=== PATIENT | male | born 1935 | race African-American/Black ===

== ENCOUNTER 2017-01-31 16:51 | Emergency (ER) | payer MEDICARE, MEDICAID ==
[~2017-01-31] VITALS: Ht 180.3 cm; Wt 68.0 kg
[~2017-01-31 16:51] MED LIST: ARIC10TA PO; BENZ0.5T PO; BUPR150T3 PO; CARV3.125 PO; FERR324T4 PO; METO10TA PO; OMEP20TA PO; POTA10TA2 PO; RISP1 PO; TRAM50TA PO; Z.0.WALKERFRONT
[2017-01-31 18:01] VITALS: BP 146/64; PULSE 75; RESP 18; TEMP 98.3; O2SAT 100
[2017-01-31 18:04] VITALS: BP 146/64; PULSE 75; RESP 18; TEMP 97.9; O2SAT 100
--- NOTE | 2017-01-31 18:21 | RADRPT ---
EXAM DATE/TIME: 01/31/2017 18:01 [facility] COMPARISON: No previous studies available for comparison. INDICATIONS : Chest pain after fall. MEDICAL HISTORY : None. SURGICAL HISTORY : None. ENCOUNTER: Initial ACUITY: 1 day PAIN SCORE: 10 LOCATION: Bilateral chest FINDINGS: There is ill-defined infiltrate of the left lung base. Right lung appears clear. No pleural effusion or pneumothorax seen on either side. Heart size stable, within normal limits. CONCLUSION: Nonspecific left base consolidation. Travis Ahumada MD on January 31, 2017 at 18:17 Board Certified Radiologist. This report was verified electronically.
--- NOTE | 2017-01-31 18:21 | RADRPT ---
EXAM DATE/TIME: 01/31/2017 18:04 [facility] COMPARISON: No previous studies available for comparison. INDICATIONS : Pelvic pain after fall. MEDICAL HISTORY : None. SURGICAL HISTORY : None. ENCOUNTER: Initial ACUITY: 1 day PAIN SCORE: 10/10 LOCATION: Bilateral pelvis. FINDINGS: A single frontal view of the pelvis demonstrates no evidence of fracture. The bony pelvic ring is in tact. Bony mineralization is normal. The soft tissues are intact. There is moderate bilateral hip osteoarthritis. CONCLUSION: Intact pelvis. Travis Ahumada MD on January 31, 2017 at 18:19 Board Certified Radiologist. This report was verified electronically.
--- NOTE | 2017-01-31 18:27 | PD ---
HPI Chief Complaint: Fall Time Seen by Provider: 18:20 Travel History International Travel<30 days: No Contact w/Intl Traveler<30days: No Traveled to known affect area: No History of Present Illness HPI 81-year-old health that presents to the ED for evaluation of trip and fall. History was mostly obtained from the ambulance as patient does have a history of dementia and is a poor historian, which from prior records is his baseline. History is limited from him but per ambulance patient did have a trip and fall at his house and hit his head. Patient was wearing glasses the time I have a cut to his left eyebrow. He is supposed to use a cane or walker at home but apparently he did not this time. Per ambulance patient complained of nothing other than pain to the area of the laceration. Patient was put on a backboard and cervical collar by ambulance. He denies any chest pain or shortness of breath. He states that his pain is mild and only gets worst if I touch it. He was not given anything for the pain. No other signs of trauma. Takes no blood thinners. He does answer some basic questions yes or no. He does have a history of allergy to Haldol. Again history is limited secondary to patient's mental status. I do not see any other sign of trauma. Patient moving the upper and lower extremities with no obvious discomfort. PFSH Past Medical History Anemia: Yes Asthma: No Blood Disorders: No Anxiety: No Depression: No Heart Rhythm Problems: No Cancer: No Cardiovascular Problems: No High Cholesterol: No Chemotherapy: No Chest Pain: No Congestive Heart Failure: No Dementia: Yes Endocrine: No Gastrointestinal Disorders: No Genitourinary: Yes Immune Disorder: No Implanted Vascular Access Dvce: No Musculoskeletal: Yes (uses a cane at home) Neurologic: No Psychiatric: Yes (bipolar) Reproductive: No Respiratory: No Immunizations Current: Yes Radiation Therapy: No Schizophrenia: Yes Sleep Apnea: No ?: Not Past Surgical History AICD: No Arteriovenous Shunt: No Cardiac Surgery: Yes (angiogram) Insulin Pump: No Joint Replacement: No Pacemaker: No Other Surgery: No Social History Alcohol Use: No Tobacco Use: Yes (1 cig per day) Substance Use: No Allergies-Medications (Allergen,Severity, Reaction): Coded Allergies: Haldol (Unverified Allergy, Intermediate, Hallucinations, 11/29/15) Reported Meds & Prescriptions Reported Meds & Active Scripts Active Walker Front Wheel (Walkerfront) Device 1 Unit Coreg 3.125 mg (Carvedilol) 3.125 Mg Tab 3.125 Mg PO Q12 Reported Reglan (Metoclopramide HCl) 10 Mg Tab 10 Mg PO TID Ferrous Sulfate 325 Mg Tab 325 Mg PO DAILY Tramadol Hcl (Tramadol HCl) 50 Mg Tab 50 Mg PO 2-3 TIMES A DAY Omeprazole 20 mg (Omeprazole) 20 Mg Tab 20 Mg PO DAILY Potassium Chloride Er (Potassium Chloride) 10 Meq Tab 10 Meq PO DAILY Cogentin (Benztropine Mesylate) 0.5 Mg Tab 0.5 Mg PO HS Bupropion Hcl Xl (Bupropion HCl) 150 Mg Tab 150 Mg PO DAILY Aricept (Donepezil HCl) 10 Mg Tab 10 Mg PO DAILY Risperdal (Risperidone) 1 Mg Tab 1 Mg PO HS Review of Systems ROS Limitations: Poor Historian General / Constitutional: No: Fever, Chills, Weight Gain, Weight Loss, Other Eyes: No: Diploplia, Blurred Vision, Photophobia, Drainage, Redness, Foreign Body Sensation, Pain, Tearing, Blind Spots, Visual changes, Blindness, Other HENT: No: Headaches, Vertigo, Lightheadedness, Sore Throat, Rhinitis, Rhinorrhea, Congestion, Nosebleed, Neck Stiffness, Neck Pain, Masses, Gingival Bleeding, Dental Difficulties, Ear Discharge, Earache, Other Cardiovascular: No: Chest Pain or Discomfort, Palpitations, Irregular Rhythm, Tachycardia, Diaphoresis, Syncope, Dyspnea on exertion, Varicosities, Edema, Cyanosis, Varicosities, Phlebitis, Claudication, Other Respiratory: No: Cough, Shortness of Breath, Wheezing, Sneezing, Orthopnea, Hemoptysis, Stridor, Night Sweats, Pleuritic Pain, Other Gastrointestinal: No: Nausea, Vomiting, Diarrhea, Abdominal Pain, Hematemesis, Hematochezia, Constipation, Changes in Bowel Habits, Indigestion, Dysphagia, Loss of Appetite, Other Genitourinary: No: Urgency, Frequency, Dysuria, Nocturia, Hematuria, Decreased Urinary Output, Oliguria, Hesitancy, Dribbling, Incontinence, Pelvic Pain, Flank Pain, Dyspareunia, Discharge, Dysmenorrhea, Menorrhagia, Metorrhagia, Vaginal Bleeding, Other Musculoskeletal: Positive: Pain, No: Myalgias, Arthralgias, Limited ROM, Weakness, Cramping, Edema, Atrophy, Other Skin: Positive Lesions (left eyebrow lac), No Rash, No Itching, No Dryness, No Lumps, No Hives, No Change in Pigmentation, No Change in nails, No Alopecia, No Breast Lumps, No Breast Tenderness, No Breast Swelling, No Other Neurologic: No: Weakness, Dizziness, Syncope, Focal Abnormalities, Coordination Problem, Tremor, Ataxia, Headache, Change in Mentation, Slurred Speech, Paresthesia, Incontinence, Seizures, Sensory Disturbance, Other Psychiatric: No: Anxiety, Depression, Suicidal Ideations, Disorder of Thought, Mood Disorder, Substance Abuse, Homicidal Ideation, Other Endocrine: No: Heat Intolerance, Cold Intolerance, Polyuria, Polydipsia, Other Hematologic/Lymphatic: No: Easy Bruising, Lymph Node Enlargement, Other Physical Exam Exam Limitations: Poor Historian Narrative GENERAL: SKIN: Warm and dry. HEAD: Atraumatic. Normocephalic. EYES: Pupils equal and round. No scleral icterus. No injection or drainage. ENT: No nasal bleeding or discharge. Mucous membranes pink and moist. Tongue is midline. No uvula deviation. NECK: Trachea midline. No JVD. CARDIOVASCULAR: Regular rate and rhythm. No murmurs, S3, S4. RESPIRATORY: No accessory muscle use. Clear to auscultation. Breath sounds equal bilaterally. GASTROINTESTINAL: Abdomen soft, non-tender, nondistended. Hepatic and splenic margins not palpable. MUSCULOSKELETAL: Extremities without clubbing, cyanosis, or edema. No obvious deformities. Full range of motion of the upper and lower extremities bilaterally with no obvious pain or deformity noted. Patient was seen on a backboard and with cervical collar placed. Patient does not appear to have any deformity or pain on the scapula or pelvic bones but patient does appear to complain of pain when I touch in the lumbar and thoracic as well as cervical spine until hard to assess secondary to the patient's mental status. He is able to move the upper and lower extremities with no obvious discomfort. 2+ pulses bilaterally. NEUROLOGICAL: Awake and alert. No obvious cranial nerve deficits. Motor grossly within normal limits. Five out of 5 muscle strength in the arms and legs. Normal speech. PSYCHIATRIC: Appropriate mood and affect; insight and judgment normal. Data Data Last Documented VS Vital Signs Date Time Temp Pulse Resp B/P Pulse Ox O2 Delivery O2 Flow Rate FiO2 01/31/17 18:56 74 18 148/64 100 Room Air 01/31/17 18:[address] Brain W/O Iv Contrast(Rout) (01/31/17 17:48) Ct Cerv Spine W/O Contrast (01/31/17 17:48) Ct Thor Spine W/O Contrast (01/31/17 17:48) Ct Lumb Spine W/O Contrast (01/31/17 17:48) Ice/Cold Pack (01/31/17 17:48) Chest, Single Ap (01/31/17 17:48) Pelvis, Ap Only (Routine) (01/31/17 17:48) MDM Medical Decision Making Medical Screen Exam Complete: Yes Emergency Medical Condition: Yes Medical Record Reviewed: Yes Interpretation(s) Last Impressions Thoracic Spine CT 01/31/171747 Signed Impressions: Service Date/Time: January 18:18 - CONCLUSION: 1. No fracture or subluxation of the thoracic spine. 2. Mild diffuse degenerative disc disease. Also facet osteoarthritis at T9/T10 contributing to right foraminal stenosis. Travis Ahumada MD Pelvis X-Ray 01/31/171747 Signed Impressions: Service Date/Time: January 18:04 - CONCLUSION: Intact pelvis. Travis Ahumada MD Head CT 01/31/171747 Signed Impressions: Service Date/Time: January 18:09 - CONCLUSION: No bleed or other acute intracranial abnormality. Chronic white matter changes. Travis Ahumada MD Chest X-Ray 01/31/171747 Signed Impressions: Service Date/Time: January 18:01 - CONCLUSION: Nonspecific left base consolidation. Travis Ahumada MD Cervical Spine CT 01/31/171747 Signed Impressions: Service Date/Time: January 18:12 - CONCLUSION: No fracture or subluxation of the cervical spine. Travis Ahumada MD CT lumbar spine negative Differential Diagnosis Dementia versus fall versus head bleed versus laceration versus abrasion versus contusion Narrative Course 81-year-old male that presents to the ED for evaluation of fall. Patient was properly examined and was found to have signs and symptoms consistent with appears to be fall. Caregiver collaborated with the story. This was a trip and fall. Imaging was ordered. Patient only has a superficial laceration. I do recommend Dermabond with Steri-Strips. Patient is agreeable with this. Imaging showed no sign of acute bony injury. Patient was reassured. From history and physical this appears to be a trip and fall. Patient appears to be at baseline at this time. Patient will be discharged back to his caregiver. Motrin or tylenol for pain. Case was discussed in my attending Dr. De Los Santos who agrees to plan. Follow up with PCP. See ED worsening symptoms. Procedures Procedure Narrative LACERATION LOCATION: left eyebrow LENGTH: 1 cm NUMBER OF STITCHES/BERNARDO: dermabond and steristrip REPAIR: The area of the laceration was prepped with Betadine and sterilely draped. The wound was copiously irrigated and explored without evidence of foreign body, tendon injury or neurovascular injury. The wound was closed using dermabond and steristrip. This was a 1 layer repair. A sterile dressing was applied. The patient was advised to keep the dressing clean and dry. Patient tolerated the procedure well. Diagnosis Primary Impression: Fall Qualified Code: W19.XXXA - Fall, initial encounter Additional Impressions: Head injury Qualified Code: S09.90XA - Head injury, initial encounter Laceration Patient Instructions: General Instructions Additional Instructions: Motrin or tylenol for pain. See ED if worst. F/u with PCP. Med/Other Pt SpecificInfo: No Meds Exist/No RX given Disposition: 01 DISCHARGE HOME Condition: Stable Yariel Mcnair Jan 31, 2017 18:27
--- NOTE | 2017-01-31 18:37 | RADRPT ---
EXAM DATE/TIME: 01/31/2017 18:09 [facility] COMPARISON: CT BRAIN W/O CONTRAST, May 06, 2016, 9:50. INDICATIONS : Fall today laceration to left frontal area. RADIATION DOSE: 56.35 CTDIvol (mGy) MEDICAL HISTORY : Cardiovascular disease. Dementia. SURGICAL HISTORY : None. ENCOUNTER: Initial ACUITY: 1 day PAIN SCALE: 0/10 LOCATION: cranial TECHNIQUE: Multiple contiguous axial images were obtained of the head. Using automated exposure control and adj ustment of the mA and/or kV according to patient size, radiation dose was kept as low as reasonably a chievable to obtain optimal diagnostic quality images. FINDINGS: CEREBRUM: The ventricles are normal for age. No evidence of midline shift, mass lesion, hemorrhage or acute in farction. No extra-axial fluid collections are seen. Chronic low attenuation seen in the periventric ular white matter. POSTERIOR FOSSA: The cerebellum and brainstem are intact. The 4th ventricle is midline. The cerebellopontine angle i s unremarkable. EXTRACRANIAL: The visualized portion of the orbits is intact. SKULL: The calvaria is intact. No evidence of skull fracture. CONCLUSION: No bleed or other acute intracranial abnormality. Chronic white matter changes. Travis Ahumada MD on January 31, 2017 at 18:34 Board Certified Radiologist. This report was verified electronically.
[2017-01-31 18:56] VITALS: BP 148/64; PULSE 74; RESP 18; O2SAT 100
--- NOTE | 2017-01-31 19:09 | RADRPT ---
EXAM DATE/TIME: 01/31/2017 18:12 [facility] COMPARISON: CT CERVICAL SPINE W/O CONTRAST, February 07, 2016, 12:03. INDICATIONS : Fall today. RADIATION DOSE: 37.93 CTDIvol (mGy) MEDICAL HISTORY : Dementia. Cardiovascular disease SURGICAL HISTORY : None. ENCOUNTER: Initial ACUITY: 1 day PAIN SCALE: 0/10 LOCATION: neck TECHNIQUE: Volumetric scanning of the cervical spine was performed. Multiplanar reconstructions in the sagittal, coronal and oblique axial planes were performed. Using automated exposure control and adjustment o f the mA and/or kV according to patient size, radiation dose was kept as low as reasonably achievable to obtain optimal diagnostic quality images. FINDINGS: Cervical spine alignment is normal and unchanged. No cortical break or trabecular disruption. Vertebr al bodies have normal height. Disc space narrowing with uncovertebral and facet osteoarthritis seen, mild to moderate at C3/C4 and C5/C6, mild at the other levels. No significant foraminal or spinal stenosis demonstrated. Nothing co nvincing for an acute disc herniation. CONCLUSION: No fracture or subluxation of the cervical spine. Travis Ahumada MD on January 31, 2017 at 19:06 Board Certified Radiologist. This report was verified electronically.
--- NOTE | 2017-01-31 19:26 | RADRPT ---
EXAM DATE/TIME: 01/31/2017 18:18 [facility] COMPARISON: No previous studies available for comparison. INDICATIONS : Fall today RADIATION DOSE: 13.60 CTDIvol (mGy) ; Combined studies - Thoracic Spine/Lumbar Spine MEDICAL HISTORY : Dementia. Cardiovascular disease SURGICAL HISTORY : None. ENCOUNTER: Initial ACUITY: 1 day PAIN SCALE: 0/10 LOCATION: Thoracic spine TECHNIQUE: Volumetric scanning of the thoracic spine was performed. Multiplanar reconstructions in the sagittal , coronal and oblique axial planes were performed. Using automated exposure control and adjustment o f the mA and/or kV according to patient size, radiation dose was kept as low as reasonably achievable to obtain optimal diagnostic quality images. FINDINGS: Thoracic spine alignment is normal. No cortical break or trabecular destruction. Vertebral bodies hav e normal height. There is mild disc space narrowing at essentially all levels. There is anterior and right lateral oss eous ridging from T7/T8-T12/L1. Right-sided predominant facet osteoarthritis seen at T9/T10 contribut ing to right foraminal stenosis. CONCLUSION: 1. No fracture or subluxation of the thoracic spine. 2. Mild diffuse degenerative disc disease. Also facet osteoarthritis at T9/T10 contributing to right foraminal stenosis. Travis Ahumada MD on January 31, 2017 at 19:23 Board Certified Radiologist. This report was verified electronically.
--- NOTE | 2017-01-31 19:36 | RADRPT ---
EXAM DATE/TIME: 01/31/2017 18:18 [facility] COMPARISON: No previous studies available for comparison. INDICATIONS : Fall today. RADIATION DOSE: 13.60 CTDIvol (mGy) ; Combined studies - Thoracic Spine/Lumbar Spine MEDICAL HISTORY : Cardiovascular disease. Dementia. SURGICAL HISTORY : None. ENCOUNTER: Initial ACUITY: 1 day PAIN SCALE: 0/10 LOCATION: Lumbar TECHNIQUE: Volumetric scanning of the lumbar spine was performed. Multiplanar reconstructions in the sagittal, coronal and oblique axial planes were performed. Using automated exposure control and adjustment of the mA and/or kV according to patient size, radiation dose was kept as low as reasonably achievable t o obtain optimal diagnostic quality images. FINDINGS: Lumbar spine has a moderate levoconvex curvature. No fracture or subluxation demonstrated. Vertebral bodies have normal height. There is right greater than left disc space narrowing with vacuum phenomena at L3/L4, L4/L5 and L5/S1 . Similar but milder findings with mainly left side disc space narrowing seen at L1/L2 and L2/L3. The re is severe right and moderate left foraminal stenosis at L5/S1. There is moderate bilateral foramin al stenosis at L4/L5 and L3/L4. CONCLUSION: Scoliosis and degenerative changes as above. No fracture or subluxation of the lumbar spine. Travis Ahumada MD on January 31, 2017 at 19:33 Board Certified Radiologist. This report was verified electronically.
== END 2017-01-31 22:05 | disposition home or self-care (01) ==
LOC: NEPE 16:51
DX: S09.90XA Unspecified injury of head, initial encounter (principal); F03.90 Unspecified dementia, unspecified severity, without behavioral disturbance, psychotic disturbance, mood disturbance, and anxiety; W01.0XXA Fall on same level from slipping, tripping and stumbling without subsequent striking against object, initial encounter; Y92.009 Unspecified place in unspecified non-institutional (private) residence as the place of occurrence of the external cause; Z72.0 Tobacco use
CPT/HCPCS: 12011; 70450; 71010; 72125; 72128; 72131; 72170

== ENCOUNTER 2017-02-06 09:36 | Inpatient (IN) | payer MEDICARE, MEDICAID ==
[~2017-02-06] VITALS: Ht 172.7 cm; Wt 62.0 kg
[2017-02-06 09:49] VITALS: BP 162/78; PULSE 84; RESP 20; TEMP 98.4; O2SAT 100
[2017-02-06] MEDS ORDERED: SODIUM CHLOR 0.9% 1000 ML INJ 1,000 ML IV ONE (10:00)
[2017-02-06] MEDS ORDERED: SODIUM CHLORIDE 0.9% FLUSH 5 ML FLUSH IVF PRN (10:00)
[2017-02-06 10:21] LABS: AUTOMATED NEUTROPHIL # 8.7 TH/MM3 (1.8-7.7); BASOPHIL % 0.2 % (0.0-2.0); HEMO FLAGS DIFF FINAL; LYMPH % 13.3 % (9.0-44.0); LYMPHOCYTE # 1.4 TH/MM3 (1.0-4.8); MEAN CELL VOLUME 91.6 FL (80.0-100.0); MEAN CORPUSCULAR HEMOGLOBIN 29.4 PG (27.0-34.0); MEAN CORPUSCULAR HGB CONC 32.1 % (32.0-36.0); MONO % 6.8 % (0.0-8.0); NEUT % 79.7 % (16.0-70.0); PLATELET COUNT 211 TH/MM3 (150-450); RED BLOOD COUNT 4.37 MIL/MM3 (4.50-5.90); RED CELL DISTRIBUTION WIDTH 14.7 % (11.6-17.2); WHITE BLOOD COUNT 10.9 TH/MM3 (4.0-11.0)
[2017-02-06 10:25] LABS: APTT (PATIENT) 26.5 SEC (24.3-30.1); PROTHROMBIN TIME - PATIENT 11.2 SEC (9.8-11.6)
--- NOTE | 2017-02-06 10:40 | RADRPT ---
EXAM DATE/TIME: 02/06/2017 10:25 [facility] COMPARISON: CHEST SINGLE AP, January 31, 2017, 18:01. INDICATIONS : Fall. Palpiatations. MEDICAL HISTORY : Cardiovascular disease. Dementia. SURGICAL HISTORY : None. ENCOUNTER: Initial ACUITY: 1 day PAIN SCORE: Non-responsive. LOCATION: Bilateral chest FINDINGS: A single view of the chest demonstrates the lungs to be symmetrically aerated without evidence of mas s, infiltrate or effusion. The cardiomediastinal contours are unremarkable. Osseous structures are intact. CONCLUSION: No acute disease. Walker De Santiago MD FACR on February 06, 2017 at 10:39 Board Certified Radiologist. This report was verified electronically.
--- NOTE | 2017-02-06 11:14 | PD ---
HPI Chief Complaint: Fall Time Seen by Provider: 09:50 Travel History International Travel<30 days: No Contact w/Intl Traveler<30days: No Traveled to known affect area: No History of Present Illness HPI Is an 81-year-old male who is brought in by EMS for evaluation of fall. He is accompanied by his neighbor who brings him his medicines. Patient apparently has a history of dementia and frequent falls. Patient was last seen by her last morning when she stopped by to bring him his medicines. She went by this morning and found him on the floor and called 911. According to her he had said that he fell an hour prior to her getting there. He is fairly demented and I'm not sure this is an accurate history. He has no complaints currently. He is oriented to self only. This extremely limits his history. According to the neighbor the patient has had a history of recent falls and has been in the emergency department multiple times and she thinks that he needs to be in a shelter. His family lives in the [facility] not at bedside further history at this time. PFSH Past Medical History Anemia: Yes Asthma: No Blood Disorders: No Anxiety: No Depression: No Heart Rhythm Problems: No Cancer: No Cardiovascular Problems: No High Cholesterol: No Chemotherapy: No Chest Pain: No Congestive Heart Failure: No Dementia: Yes Endocrine: No Gastrointestinal Disorders: No Genitourinary: Yes Immune Disorder: No Implanted Vascular Access Dvce: No Musculoskeletal: Yes (uses a cane at home) Neurologic: No Psychiatric: Yes (bipolar) Reproductive: No Respiratory: No Immunizations Current: Yes Radiation Therapy: No Schizophrenia: Yes Sleep Apnea: No Past Surgical History AICD: No Arteriovenous Shunt: No Cardiac Surgery: Yes (angiogram) Insulin Pump: No Joint Replacement: No Pacemaker: No Other Surgery: No Social History Alcohol Use: No Tobacco Use: Yes (1 cig per day) Substance Use: No Allergies-Medications (Allergen,Severity, Reaction): Coded Allergies: Haldol (Verified Allergy, Intermediate, Hallucinations, 02/06/17) Reported Meds & Prescriptions Reported Meds & Active Scripts Active Reported Benztropine (Benztropine Mesylate) 0.5 Mg Tab 0.5 Mg PO HS Wellbutrin Xl 24 HR (Bupropion HCl) 150 Mg Tab 150 Mg PO DAILY Carvedilol 3.125 Mg Tab 3.125 Mg PO Q12HR Donepezil 10 Mg Tab 10 Mg PO DAILY Ferrous Sulfate 325 Mg Tab 325 Mg PO DAILY Omeprazole 20 Mg Tab 20 Mg PO DAILY K-Tab (Potassium Chloride) 10 Meq Tab 10 Meq PO DAILY Risperdal (Risperidone) 1 Mg Tab 1 Mg PO HS Tramadol (Tramadol HCl) 50 Mg Tab 50 Mg PO 2-3 TIMES DAILY Cyproheptadine (Cyproheptadine HCl) 4 Mg Tab 4 Mg PO BID Review of Systems Except as stated in HPI: all other systems reviewed are Neg Physical Exam Narrative GENERAL: Well-developed thin no apparent distress SKIN: Warm and dry. HEAD: No hernandez signs no raccoons eyes, there is a small ecchymosis underneath the left eye, a laceration to his left brow which is been repaired and has Steri -Strips in place. Normocephalic. EYES: Pupils equal and round. No scleral icterus. No injection or drainage. ENT: No nasal bleeding or discharge. Mucous membranes pink and moist. NECK: Trachea midline. No JVD. CARDIOVASCULAR: Regular rate and rhythm. No murmur appreciated. RESPIRATORY: No accessory muscle use. Clear to auscultation. Breath sounds equal bilaterally. GASTROINTESTINAL: Abdomen soft, non-tender, nondistended. Hepatic and splenic margins not palpable. MUSCULOSKELETAL: No obvious deformities. No clubbing. No cyanosis. No edema. NEUROLOGICAL: Awake and alert. No obvious cranial nerve deficits. Motor grossly within normal limits. Normal speech. PSYCHIATRIC: Appropriate mood and affect; insight and judgment normal. Data Data Last Documented VS Vital Signs Date Time Temp Pulse Resp B/P Pulse Ox O2 Delivery O2 Flow Rate FiO2 02/06/17 13:16 85 20 153/65 97 Room Air 02/06/17 09:49 98.4 Orders Electrocardiogram (02/06/17 ) Complete Blood Count With Diff (02/06/17 09:50) Comprehensive Metabolic Panel (02/06/17 09:50) Ckmb (Isoenzyme) Profile (02/06/17 09:50) Troponin I (02/06/17 09:50) Act Partial Throm Time (Ptt) (02/06/17 09:50) Prothrombin Time / Inr (Pt) (02/06/17 09:50) Urinalysis - C+S If Indicated (02/06/17 09:50) Chest, Single Ap (02/06/17 09:50) Ct Brain W/O Iv Contrast(Rout) (02/06/17 09:50) Ct Cerv Spine W/O Contrast (02/06/17 09:50) Ecg Monitoring (02/06/17 09:50) Iv Access Insert/Monitor (02/06/17 09:50) Oximetry (02/06/17 09:50) Sodium Chloride 0.9% Flush (Ns Flush) (02/06/17 10:00) Sodium Chlor 0.9% 1000 Ml Inj (Ns 1000 M (02/06/17 10:00) CKMB (02/06/17 11:20) CKMB% (02/06/17 11:20) Lorazepam Inj (Ativan Inj) (02/06/17 13:15) Admit Order (Ed Use Only) (02/06/17 ) Labs Laboratory Tests Test 02/06/17 02/06/17 10:05 11:20 White Blood Count 10.9 TH/MM3 Red Blood Count 4.37 MIL/MM3 Hemoglobin 12.8 GM/DL Hematocrit 40.0 % Mean Corpuscular Volume 91.6 FL Mean Corpuscular Hemoglobin 29.4 PG Mean Corpuscular Hemoglobin 32.1 % Concent Red Cell Distribution Width 14.7 % Platelet Count 211 TH/MM3 Mean Platelet Volume 8.7 FL Neutrophils (%) (Auto) 79.7 % Lymphocytes (%) (Auto) 13.3 % Monocytes (%) (Auto) 6.8 % Eosinophils (%) (Auto) 0.0 % Basophils (%) (Auto) 0.2 % Neutrophils # (Auto) 8.7 TH/MM3 Lymphocytes # (Auto) 1.4 TH/MM3 Monocytes # (Auto) 0.7 TH/MM3 Eosinophils # (Auto) 0.0 TH/MM3 Basophils # (Auto) 0.0 TH/MM3 CBC Comment DIFF FINAL Differential Comment Prothrombin Time 11.2 SEC Prothromb Time International 1.0 RATIO Ratio Activated Partial 26.5 SEC Thromboplast Time Sodium Level 147 MEQ/L Potassium Level 3.7 MEQ/L Chloride Level 114 MEQ/L Carbon Dioxide Level 20.8 MEQ/L Anion Gap 12 MEQ/L Blood Urea Nitrogen 14 MG/DL Creatinine 1.01 MG/DL Estimat Glomerular Filtration 86 ML/MIN Rate Random Glucose 70 MG/DL Calcium Level 8.3 MG/DL Total Bilirubin 0.4 MG/DL Aspartate Amino Transf 113 U/L (AST/SGOT) Alanine Aminotransferase 40 U/L (ALT/SGPT) Alkaline Phosphatase 145 U/L Total Creatine Kinase 3549 U/L Creatine Kinase MB 14.7 NG/ML Creatine Kinase MB % 0.4 % Troponin I LESS THAN 0.02 NG/ML Total Protein 6.8 GM/DL Albumin 2.8 GM/DL MDM Medical Decision Making Medical Screen Exam Complete: Yes Emergency Medical Condition: Yes Interpretation(s) EKG shows normal sinus rhythm with normal axis and normal R-wave progression. No concerning ST T changes. Somewhat limited by motion artifact. Normal EKG otherwise. Differential Diagnosis Rhabdomyolysis, fall, head injury, dementia, poor social circumstance. Narrative Course Last [address] 02/06/17949 Signed Impressions: Service Date/Time: Monday, February 06, 2017 11:27 - CONCLUSION: 1. No acute intracranial abnormality or significant change is seen. 2. Atrophy. There is suspected small vessel demyelination in the cerebral white matter. Travis Colon MD Chest X-Ray 02/06/17949 Signed Impressions: Service Date/Time: Monday, February 06, 2017 10:25 - CONCLUSION: No acute disease. Walker De Santiago MD FACR Cervical Spine CT 02/06/17949 Signed Impressions: Service Date/Time: Monday, February 06, 2017 11:29 - CONCLUSION: No acute bony abnormality is seen. There is mild degenerative change as described above. Travis Colon MD Patient's labs reveal rhabdomyolysis. Patient becoming agitated, ativan given. Attempts to reach family unsuccessful. Discussed with Dr. Lua for admission. May require placement. Diagnosis Primary Impression: Rhabdomyolysis Qualified Code: M62.82 - Non-traumatic rhabdomyolysis Additional Impression: Poor social situation Taiwo Bernardo MD Feb 06, 2017 11:14
[2017-02-06 11:49] VITALS: BP 149/68; PULSE 85; RESP 20; O2SAT 98
[2017-02-06] MEDS ORDERED: CYPR4TAB PO (11:53)
--- NOTE | 2017-02-06 12:03 | RADRPT ---
EXAM DATE/TIME: 02/06/2017 11:27 [facility] COMPARISON: CT BRAIN W/O CONTRAST, January 31, 2017, 18:09. INDICATIONS : patient fell this morning was found on the floor. RADIATION DOSE: 56.36 CTDIvol (mGy) MEDICAL HISTORY : Cardiovascular disease. Hypertension. SURGICAL HISTORY : None. ENCOUNTER: Initial ACUITY: 1 day PAIN SCALE: 5/10 LOCATION: cranial TECHNIQUE: Multiple contiguous axial images were obtained of the head. Using automated exposure control and adj ustment of the mA and/or kV according to patient size, radiation dose was kept as low as reasonably a chievable to obtain optimal diagnostic quality images. FINDINGS: CEREBRUM: The ventricles and cortical sulci are widened. There is decreased density in the periventricular whi te matter. Basal ganglia calcifications are present. No evidence of midline shift, mass lesion, hemor rhage or acute infarction. No extra-axial fluid collections are seen. POSTERIOR FOSSA: The cerebellum and brainstem are intact. The 4th ventricle is midline. The cerebellopontine angle i s unremarkable. There is some expansion of the extra-axial spaces of the posterior fossa. EXTRACRANIAL: The visualized portion of the orbits is intact. SKULL: The calvaria is intact. No evidence of skull fracture. CONCLUSION: 1. No acute intracranial abnormality or significant change is seen. 2. Atrophy. There is suspected small vessel demyelination in the cerebral white matter. Travis Colon MD on February 06, 2017 at 12:00 Board Certified Radiologist. This report was verified electronically.
[2017-02-06 12:13] LABS: ALKALINE PHOSPHATASE 145 U/L (45-117); ALT (GPT) 40 U/L (12-78); ANION GAP 12 MEQ/L (5-15); AST (GOT) 113 U/L (15-37); BICARBONATE 20.8 MEQ/L (21.0-32.0); BLOOD UREA NITROGEN 14 MG/DL (7-18); CHLORIDE 114 MEQ/L (98-107); CREATINE KINASE 3549 U/L (39-308); GLOMERULAR FILTRATION RATE 86 ML/MIN (>89); POTASSIUM 3.7 MEQ/L (3.5-5.1); SODIUM (NA) 147 MEQ/L (136-145)
[2017-02-06 12:18] LABS: TOTAL BILIRUBIN ADULT 0.4 MG/DL (0.2-1.0)
[2017-02-06 12:42] LABS: CKMB 14.7 NG/ML (0.5-3.6)
--- NOTE | 2017-02-06 12:51 | RADRPT ---
EXAM DATE/TIME: 02/06/2017 11:29 [facility] COMPARISON: CT CERVICAL SPINE W/O CONTRAST, January 31, 2017, 18:12. INDICATIONS : Patient was found on the floor this morning. RADIATION DOSE: 34.05 CTDIvol (mGy) MEDICAL HISTORY : Hypertension. Cardiovascular disease SURGICAL HISTORY : None. ENCOUNTER: Initial ACUITY: 1 day PAIN SCALE: 5/10 LOCATION: neck TECHNIQUE: Volumetric scanning of the cervical spine was performed. Multiplanar reconstructions in the sagittal, coronal and oblique axial planes were performed. Using automated exposure control and adjustment o f the mA and/or kV according to patient size, radiation dose was kept as low as reasonably achievable to obtain optimal diagnostic quality images. FINDINGS: VERTEBRAE: Normal vertebral body height. ALIGNMENT: No evidence of subluxation. C2-C3: The bony spinal canal is normal in size. No evidence of disc bulge or herniation. The neural forami na are bilaterally patent. There is mild facet hypertrophy. C3-C4: The bony spinal canal is normal in size. No evidence of disc bulge or herniation. The neural forami na are bilaterally patent. There is mild left facet hypertrophy and bilateral uncovertebral hypertrop hy. Anterior marginal osteophytes are seen. C4-C5: The bony spinal canal is normal in size. No evidence of disc bulge or herniation. The neural forami na are bilaterally patent. There is mild left facet hypertrophy and bilateral uncovertebral hypertrop hy. Anterior marginal osteophytes are seen. C5-C6: The bony spinal canal is normal in size. No evidence of disc bulge or herniation. The neural forami na are bilaterally patent. There is mild osteophytic ridging present. There is uncovertebral hypertro phy. C6-C7: The bony spinal canal is normal in size. No evidence of disc bulge or herniation. The neural forami na are bilaterally patent. Mild anterior marginal osteophytes are present. There is mild uncovertebra l hypertrophy. C7-T1: The bony spinal canal is normal in size. No evidence of disc bulge or herniation. The neural forami na are bilaterally patent. Anterior marginal osteophytes are seen. CONCLUSION: No acute bony abnormality is seen. There is mild degenerative change as described above. Travis Colon MD on February 06, 2017 at 12:43 Board Certified Radiologist. This report was verified electronically.
[2017-02-06] MEDS ORDERED: LORazepam 2 MG/ML VIAL IM ONE (13:15)
[2017-02-06 13:16] VITALS: BP 153/65; PULSE 85; RESP 20; O2SAT 97
[2017-02-06] MEDS ORDERED: PILL SPLITTER OTHER PRN (15:30)
[2017-02-06 17:00] VITALS: BP 161/68; PULSE 89; RESP 20; O2SAT 98
[2017-02-06] MEDS: ENOXAPARIN SODIUM 40 MG/0.4 ML SYRINGE SQ SCH (17:03)
[2017-02-06] MEDS ORDERED: K-TA10TA PO (17:33)
[2017-02-06] MEDS ORDERED: RISP1 PO (17:33)
[2017-02-06] MEDS ORDERED: TRAM50TA PO (17:33)
[2017-02-06] MEDS ORDERED: FERR325T PO (17:38)
[2017-02-06] MEDS ORDERED: DONE10TA7 PO (17:38)
[2017-02-06] MEDS ORDERED: CARV3.12 PO (17:38)
[2017-02-06] MEDS ORDERED: BENZ0.5T PO (17:38)
[2017-02-06] MEDS ORDERED: OMEP20TA PO (17:38)
[2017-02-06] MEDS ORDERED: BUPR150XL PO (17:38)
[2017-02-06] MEDS: SODIUM BICARBONATE 8.4% INJ 50 MEQ in DEXTROSE 5% IN WATE 1000ML INJ 1,000 ML IV SCH ×2 (17:52)
--- NOTE | 2017-02-06 17:59 | HHI.HP ---
[facility] Walker Love DO Admission Diagnosis Rhabdomyolysis, Dehydration. Diagnoses: Travel History International Travel<30 Days: No Contact w/Intl Traveler <30 Da: No Traveled to Known Affected Are: No Past Family Social History Allergies: Coded Allergies: Haldol (Verified Allergy, Intermediate, Hallucinations, 02/06/17) Physical Exam Vital Signs Vital Signs Date Time Temp Pulse Resp B/P Pulse Ox O2 Delivery O2 Flow Rate FiO2 02/06/17 17:00 89 20 161/68 98 Room Air 02/06/17 13:16 85 20 153/65 97 Room Air 02/06/17 11:49 85 20 149/68 98 Room Air 02/06/17 09:49 98.4 84 20 162/78 100 Laboratory Laboratory Tests Test 02/06/17 02/06/17 10:05 11:20 White Blood Count 10.9 Red Blood Count 4.37 Hemoglobin 12.8 Hematocrit 40.0 Mean Corpuscular Volume 91.6 Mean Corpuscular Hemoglobin 29.4 Mean Corpuscular Hemoglobin 32.1 Concent Red Cell Distribution Width 14.7 Platelet Count 211 Mean Platelet Volume 8.7 Neutrophils (%) (Auto) 79.7 Lymphocytes (%) (Auto) 13.3 Monocytes (%) (Auto) 6.8 Eosinophils (%) (Auto) 0.0 Basophils (%) (Auto) 0.2 Neutrophils # (Auto) 8.7 Lymphocytes # (Auto) 1.4 Monocytes # (Auto) 0.7 Eosinophils # (Auto) 0.0 Basophils # (Auto) 0.0 CBC Comment DIFF FINAL Differential Comment Prothrombin Time 11.2 Prothromb Time International 1.0 Ratio Activated Partial 26.5 Thromboplast Time Sodium Level 147 Potassium Level 3.7 Chloride Level 114 Carbon Dioxide Level 20.8 Anion Gap 12 Blood Urea Nitrogen 14 Creatinine 1.01 Estimat Glomerular Filtration 86 Rate Random Glucose 70 Calcium Level 8.3 Total Bilirubin 0.4 Aspartate Amino Transf 113 (AST/SGOT) Alanine Aminotransferase 40 (ALT/SGPT) Alkaline Phosphatase 145 Total Creatine Kinase 3549 Creatine Kinase MB 14.7 Creatine Kinase MB % 0.4 Troponin I LESS THAN 0.02 Total Protein 6.8 Albumin 2.8 Result Diagram: 02/06/17 1005 02/06/17 1120 Assessment and Plan Assessment and Plan dictated, [id number] Add rhabdomyolysis to assessment Physician Certification 2 Midnight Certification Type: Admission for Inpatient Services Order for Inpatient Services The services are ordered in accordance with Medicare regulations or non- Medicare payer requirements, as applicable. In the case of services not specified as inpatient-only, they are appropriately provided as inpatient services in accordance with the 2-midnight benchmark. Estimated LOS (days): 5 days is the estimated time the patient will need to remain in the hospital, assuming treatment plan goals are met and no additional complications. Post-Hospital Plan: [facility] Vickie Sandoval Feb 06, 2017 17:59
--- NOTE | 2017-02-06 18:44 | HHI.PR ---
Objective Objective Results - Vital Signs Date Time Temp Pulse Resp B/P Pulse Ox O2 Delivery O2 Flow Rate FiO2 02/06/17 17:00 89 20 161/68 98 Room Air 02/06/17 13:16 85 20 153/65 97 Room Air 02/06/17 11:49 85 20 149/68 98 Room Air 02/06/17 09:49 98.4 84 20 162/78 100 Result Diagram: 02/06/17 1005 02/06/17 1120 Other Results Laboratory Tests Test 02/06/17 02/06/17 10:05 11:20 White Blood Count 10.9 Red Blood Count 4.37 Hemoglobin 12.8 Hematocrit 40.0 Mean Corpuscular Volume 91.6 Mean Corpuscular Hemoglobin 29.4 Mean Corpuscular Hemoglobin 32.1 Concent Red Cell Distribution Width 14.7 Platelet Count 211 Mean Platelet Volume 8.7 Neutrophils (%) (Auto) 79.7 Lymphocytes (%) (Auto) 13.3 Monocytes (%) (Auto) 6.8 Eosinophils (%) (Auto) 0.0 Basophils (%) (Auto) 0.2 Neutrophils # (Auto) 8.7 Lymphocytes # (Auto) 1.4 Monocytes # (Auto) 0.7 Eosinophils # (Auto) 0.0 Basophils # (Auto) 0.0 CBC Comment DIFF FINAL Differential Comment Prothrombin Time 11.2 Prothromb Time International 1.0 Ratio Activated Partial 26.5 Thromboplast Time Sodium Level 147 Potassium Level 3.7 Chloride Level 114 Carbon Dioxide Level 20.8 Anion Gap 12 Blood Urea Nitrogen 14 Creatinine 1.01 Estimat Glomerular Filtration 86 Rate Random Glucose 70 Calcium Level 8.3 Total Bilirubin 0.4 Aspartate Amino Transf 113 (AST/SGOT) Alanine Aminotransferase 40 (ALT/SGPT) Alkaline Phosphatase 145 Total Creatine Kinase 3549 Creatine Kinase MB 14.7 Creatine Kinase MB % 0.4 Troponin I LESS THAN 0.02 Total Protein 6.8 Albumin 2.8 Physical Exam Physical Exam PT is seen & examined d/w PT d/w Vickie see orders see H&P will f/u Arelis Lua MD Feb 06, 2017 18:44
[2017-02-06 19:11] LABS: BLOOD, URINE SMALL (NEG); GLUCOSE,URINE NEG (NEG); HYALINE CAST, URINE 7 /lpf (RARE); KETONE, URINE 80 mg/dL (NEG); MUCUS URINE FEW /lpf (OCC); NITRITE,URINE NEG (NEG); PH, URINE 5.5 (5.0-8.5); URINE COLOR YELLOW (YELLW/STRAW)
[2017-02-06 19:12] LABS: COMMENT (UR) CULT NOT INDICATED; CULTURE IF INDICATED CULT NOT INDICATED
[2017-02-06 20:00] VITALS: BP 174/82; PULSE 99; RESP 24; TEMP 97.4; O2SAT 98
[2017-02-06] MEDS: risperiDONE 1 MG TAB PO SCH (20:44)
[2017-02-06] MEDS: BENZTROPINE MESYLATE 1 MG TAB PO SCH (20:44)
[2017-02-06] MEDS: CARVEDILOL 3.125 MG TAB PO SCH (20:44)
[2017-02-06 22:15] VITALS: BP 150/72; PULSE 91
[2017-02-07] VITALS: BP 142/66; PULSE 87; RESP 24; TEMP 96.8; O2SAT 98
[2017-02-07] MEDS: SODIUM BICARBONATE 8.4% INJ 50 MEQ in DEXTROSE 5% IN WATE 1000ML INJ 1,000 ML IV SCH ×4 (04:01→14:00)
[2017-02-07 06:32] VITALS: BP 158/76; PULSE 85; RESP 16; TEMP 96.8; O2SAT 97
[2017-02-07 07:43] VITALS: BP 136/79; PULSE 88; RESP 18; TEMP 97.1; O2SAT 99
--- NOTE | 2017-02-07 08:50 | MH ---
cc: АННА LUA MD DATE OF ADMISSION 02/06/2017 DATE OF 1935 CHIEF COMPLAINT Fall, altered mental status. History of any travel last 30 days, none. HISTORY OF PRESENT ILLNESS This is a pleasant 81-year-old black male who came in for evaluation of a fall. He is accompanied by his neighbor who is his sales strategy manager. She lives in the home next door but comes over every day, multiple times feeding him, helping assisting him with any daily activities, brings him his medicines and basically is his sales strategy manager. He does have some family that lives up in the [facility] but she states no one ever comes by. When she got there this morning to check on him she found him in the floor and called EMS to come evaluate him. According to neighbor who is name is Angie states that he has been falling more and more over the past couple years. She states that he does get confused easily but with her assistance he has been able to stay in his home. She does state that he is fairly demented. The patient was nonverbal to me and did not respond to simple questions. His eyes are open but he is not tracking or following me with his eyes. He is resting in the bed with no shortness of breath. No acute facial grimace, otherwise I have been unable to assess any other review of systems. I am using his medical records to gather history and data. PAST MEDICAL HISTORY Includes: 1. Anemia. 2. Dementia. 3. Urinary problems, incontinence. 4. Ambulates at home and uses a cane. 5. Bipolar disorder. 6. Schizophrenia. PAST SURGICAL HISTORY According to the record: Angiograms. ALLERGIES HALDOL. MEDICATIONS Reported: 1. Reglan. 2. Ferrous sulfate. 3. Tramadol. 4. Omeprazole. 5. Potassium. 6. Cogentin. 7. Bupropion. 8. Aricept. 9. Risperdal. SOCIAL HISTORY The patient has been a smoker all of his life but more recently the patient has been smoking one cigarette a day. He does drink a bottle of water when his neighbor comes over to give him his medicines but other than that she does not know if he is drinking or eating anything else except for what she gives him. No substance abuse to her knowledge. And no alcohol. Currently the patient has been living alone in his home with the help of his neighbor Angie. PHYSICAL EXAMINATION VITAL SIGNS: Temperature is 98.4, pulse 89, respirations 20, blood pressure 161/68 and 149/68, O2 sat 98 on room air. SKIN: Very dry to touch. Turgor is poor. GENERAL: Frail 81-year-old black male looks to be older than his stated age, resting on a stretcher. HEENT: Atraumatic, normocephalic except for depressed fontanel, very minimal small laceration under his left eye with Steri-Strips in place. ARNOLD at 2. Mucous membranes very dry and pale. NECK: Thin, supple. CARDIOVASCULAR: S1-S2, soft systolic murmur noted at the left sternal border. RESPIRATORY: Low volumes but essentially clear to auscultation anteriorly and posteriorly with no wheezes, rales or rhonchi. GASTROINTESTINAL: Abdomen is flat, soft, nontender, nondistended. Hypoactive bowel sounds. MUSCULOSKELETAL: No obvious deformities. No cyanosis. No edema. He is not moving his extremities with purpose. He is not obeying simple commands such as finger squeeze. NEUROLOGIC: His eyes are open. He has been nonverbal during my exam. PSYCHIATRIC: Appropriate mood with no increased anxiety. Affect flat. LABORATORY DATA Diagnostic data, White count 10,9, RBC 4.37, hemoglobin 12.8, hematocrit 40, platelet count 211, neutrophil auto count 79.7. PT INR is 1. Sodium 147, potassium 3.7, chloride 114, carbon dioxide 20.8, amnion gap 12, BUN 14, creatinine 1.01, GFR 86, random glucose 70, calcium 8.3. Total bilirubin 0.4, AST 113, ALT 40, alkaline phosphatase 145. Total creatinine kinase 3549, CK-MB 14.7. Troponin less than 0.02. Total protein 6.8, albumin 2.8. IMAGING Studies show cervical spine CT no bony abnormality seen. Mild degenerative changes noted. Chest x-ray shows no acute disease. Head CT scan no acute intracranial abnormality. Atrophy is suspected with small vessel demyelinization in the cerebral white matter. ASSESSMENT AND PLAN 1. Schizoaffective disorder. 2. Generalized weakness and fall with laceration under left eye. 3. History of cerebrovascular accident. 4. Dementia. 5. Dehydration. 6. Anemia. 7. Hypernatremia. 8. Moderate protein calorie malnutrition. 9. Tobacco abuse. Our plan is to admit to inpatient status due to the multiple medical comorbidities. It is my opinion that the patient will require multiple days for his stabilization which will include a consult for PT and OT for their expert opinion. Swallow will be evaluated with his healthy heart diet for any possible aspiration. Labs will be monitored and treated for his abnormal ratings. He will be placed on telemetry or ECG monitoring. reconcile medications as appropriate. Gentle hydration. DVT prophylaxis with Lovenox. PUD prophylaxis with Protonix. Discharge planning will need to be evaluated for this patient due to his mental capacity and his multiple falls since the patient has been living alone. Currently to my knowledge the patient is full code, full aggressive care and we will follow. Dictated by: LAUREN Hamm Анна Lua MD MNA/KK /5:49 PM /8:47 AM PT is seen & examined d/w PT d/w Vickie see orders see H&P will f/u Анна Lua MD Feb 06, 2017 18:44 MTDD
[2017-02-07] MEDS: buPROPion HCL 150 MG SUSTAINED RELEASE TAB PO SCH (09:05)
[2017-02-07] MEDS: DONEPEZIL HCL 5 MG TAB PO SCH (09:05)
[2017-02-07] MEDS: CARVEDILOL 3.125 MG TAB PO SCH ×2 (09:05→22:06)
[2017-02-07] MEDS: PANTOPRAZOLE SOD 40 MG DELAYED RELEASE TAB PO SCH (09:05)
[2017-02-07 10:42] LABS: HEMATOCRIT 31.3 % (39.0-51.0); MEAN CELL VOLUME 90.3 FL (80.0-100.0); MEAN CORPUSCULAR HEMOGLOBIN 29.1 PG (27.0-34.0); MEAN CORPUSCULAR HGB CONC 32.2 % (32.0-36.0); PLATELET COUNT 184 TH/MM3 (150-450); RED BLOOD COUNT 3.46 MIL/MM3 (4.50-5.90); RED CELL DISTRIBUTION WIDTH 14.2 % (11.6-17.2); REVIEW FLAG FINAL; WHITE BLOOD COUNT 9.3 TH/MM3 (4.0-11.0)
[2017-02-07 10:51] LABS: POTASSIUM 3.3 MEQ/L (3.5-5.1)
[2017-02-07 11:26] LABS: CKMB 7.6 NG/ML (0.5-3.6)
[2017-02-07 12:18] VITALS: BP 144/67; PULSE 77; RESP 18; TEMP 97.5; O2SAT 96
[2017-02-07] MEDS ORDERED: POTASSIUM CHLORIDE 25 MEQ EFFERVESCENT TAB PO ONE (13:00)
--- NOTE | 2017-02-07 13:51 | HHI.PR ---
Subjective Subjective Remarks Eyes open Nonverbal Edentulous now, teeth? diet changed to pureed. No cough with eating or drinking per staff and friend in room No shortness of breath (Vickie Sandoval) Review of Systems Constitutional Constitutional: Weakness (generalized) (Vickie Sandoval) Genitourinary Remarks Edgar catheter, monitor I&O (Vickie Sandoval) Musculoskeletal MS: Weakness, Stiffness (Vickie Sandoval) Neurologic Neurologic: Lethargic (at times, nonverbal) (Vickie Sandoval) Psychiatric Psychiatric Remarks Flat affect nonverbal (Vickie Sandoval) Vitals/Results Intake & Output 02/06/17 02/06/17 02/07/17 15:00 23:00 07:00 Output Total 1600 ml 300 ml Balance -1600 ml -300 ml Output Urine Total 1600 ml 300 ml # Voids 1 1 # Bowel Movements 0 0 Vital Signs Vital Signs Date Time Temp Pulse Resp B/P Pulse Ox O2 Delivery O2 Flow Rate FiO2 02/07/17 12:18 97.5 77 18 144/67 96 02/07/17 07:43 97.1 88 18 136/79 99 02/07/17 06:32 96.8 85 16 158/76 97 02/07/17 00:00 96.8 87 24 142/66 98 02/06/17 22:15 91 150/72 02/06/17 20:00 97.4 99 24 174/82 98 02/06/17 17:00 89 20 161/68 98 Room Air (Vickie Sandoval) CBC/BMP: 02/07/17 1014 02/07/17 1014 Lab Results Laboratory Tests Test 02/06/17 02/07/17 18:00 10:14 Urine Color YELLOW Urine Turbidity CLEAR Urine pH 5.5 Urine Specific [place] 1.021 Urine Protein 30 mg/dL Urine Glucose (UA) NEG mg/dL Urine Ketones 80 mg/dL Urine Occult Blood SMALL Urine Nitrite NEG Urine Bilirubin NEG Urine Urobilinogen 2.0 MG/DL Urine Leukocyte Esterase NEG Urine RBC 2 /hpf Urine WBC 2 /hpf Urine Hyaline Casts 7 /lpf Urine Mucus FEW /lpf Microscopic Urinalysis Comment CULT NOT INDICATED White Blood Count 9.3 TH/MM3 Red Blood Count 3.46 MIL/MM3 Hemoglobin 10.1 GM/DL Hematocrit 31.3 % Mean Corpuscular Volume 90.3 FL Mean Corpuscular Hemoglobin 29.1 PG Mean Corpuscular Hemoglobin 32.2 % Concent Red Cell Distribution Width 14.2 % Platelet Count 184 TH/MM3 Mean Platelet Volume 8.3 FL Sodium Level 141 MEQ/L Potassium Level 3.3 MEQ/L Chloride Level 104 MEQ/L Carbon Dioxide Level 27.0 MEQ/L Anion Gap 10 MEQ/L Blood Urea Nitrogen 5 MG/DL Creatinine 0.89 MG/DL Estimat Glomerular Filtration 99 ML/MIN Rate Random Glucose 127 MG/DL Calcium Level 8.5 MG/DL Total Creatine Kinase 3957 U/L Creatine Kinase MB 7.6 NG/ML Creatine Kinase MB % 0.2 % Imaging Remarks Last Impressions Head CT 02/06/17949 Signed Impressions: Service Date/Time: Monday, February 06, 2017 11:27 - CONCLUSION: 1. No acute intracranial abnormality or significant change is seen. 2. Atrophy. There is suspected small vessel demyelination in the cerebral white matter. Travis Colon MD Chest X-Ray 02/06/17949 Signed Impressions: Service Date/Time: Monday, February 06, 2017 10:25 - CONCLUSION: No acute disease. Walker De Santiago MD FACR Cervical Spine CT 02/06/17949 Signed Impressions: Service Date/Time: Monday, February 06, 2017 11:29 - CONCLUSION: No acute bony abnormality is seen. There is mild degenerative change as described above. Travis Colon MD Current Medications Active Medications Benztropine Mesylate (Cogentin) 0.5 mg HS PO Last administered on 02/06/17 20: 44; Admin Dose 0.5 MG; Start 02/06/17 at 21:00 Bupropion HCl (Wellbutrin Sr) 150 mg DAILY PO Last administered on 02/07/17 09: 05; Admin Dose 150 MG; Start 02/07/17 at 09:00 Carvedilol (Coreg) 3.125 mg BID PO Last administered on 02/07/17 09:05; Admin Dose 3.125 MG; Start 02/06/17 at 21:00 Donepezil HCl (Aricept) 10 mg DAILY PO Last administered on 02/07/17 09:05; Admin Dose 10 MG; Start 02/07/17 at 09:00 Enoxaparin Sodium (Lovenox Inj) 40 mg Q24H SQ Last administered on 02/06/17 17: 03; Admin Dose 40 MG; Start 02/06/17 at 16:00 Miscellaneous 1 ea 1 ea UNSCH PRN OTHER; Start 02/06/17 at 15:30 Pantoprazole Sodium (Protonix) 40 mg DAILY PO Last administered on 02/07/17 09: 05; Admin Dose 40 MG; Start 02/07/17 at 09:00 Potassium Bicarb/ Potassium Chloride (K-Lyte Cl Eff) 50 meq ONCE ONCE PO; Start 02/07/17 at 13:00; Stop 02/07/17 at 13:01; Status DC Risperidone (risperDAL) 1 mg HS PO Last administered on 02/06/17 20:44; Admin Dose 1 MG; Start 02/06/17 at 21:00 Sodium Bicarbonate/ Dextrose (Sodium Bicarbonate 8.4% Inj/D5W 1000 ml Inj) 1, 050 ml @ 100 mls/hr [id number] IV Last administered on 02/07/17 04:01; Admin Dose 100 MLS/HR; Start 02/06/17 at 17:00 (Vickie Sandoval) Physical Exam General General Appearance: Pale (thin, chronically ill) (Vickie Sandoval) Eyes Eye Exam: Pupils Equal (Vickie Sandoval) Ears & Nose Ears & Nose Remarks Pale mucous membranes (Vickie Sandoval) Throat Throat Remarks Tongue dry (Vickie Sandoval) Neck Neck Exam: Neck Supple (Vickie Sandoval) Pulmonary Resp Exam: Diminished Breath Sounds (low volumes), Poor Inspiratory Effort ( Vickie Sandoval) Cardiology CV Exam: Regular (Vickie Sandoval) Gastrointestinal/Abdomen GI Exam: Soft, Non-Tender (Vickie Sandoval) Genitourinary Exam: Clear Urine (orange clear) (Vickie Sandoval) Musculoskeletal MS Exam: Atrophy (muscular) (Vickie Sandoval) Integumentary Skin Exam: Warm, Dry, Intact, Normal Turgor (thin turgor) (Vickie Sandoval) Extremeties Extremities Exam: No Edema (Vickie Sandoval) Neurologic Neuro Exam: Awake Neuro Remarks Nonverbal (Vickie Sandoval) Assessment/Plan Assessment/Plan 1. Schizoaffective disorder. 2. Generalized weakness and fall with laceration under left eye. 3. History of cerebrovascular accident. 4. Dementia. 5. Dehydration. 6. Anemia. 7. Hypernatremia. 8. Moderate protein calorie malnutrition. 9. Tobacco abuse. 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 It is my opinion that the patient will require multiple days for his stabilization which will include a consult for PT and OT for their expert opinion. Swallow without difficulty as long as food is pure read or chopped. Patient is edentulous for now, dentures may be at home and states Angie who is his caregiver. No cough noted with liquids or food and swallows appropriately. We' ll keep his food. Pureed For now Labs will be monitored and treated for his abnormal ratings. Hemoglobin stable, WBC count normal, rhabdomyolysis gradual improvement. Continue gentle hydration We'll monitor labs in the morning. telemetry, regular rhythm DVT prophylaxis with Lovenox. PUD prophylaxis with Protonix. Reglan before meals which assist with patient's hiccups according to caregiver Discharge planning initiated with case management following. 3008 on chart. When patient is stable, he will need to go to SNF placement, with possible rehabilitation. Patient has multiple falls, and will need strengthening. We will start PT while in hospital. Patient has end-stage dementia, nonverbal during exam, we'll have palliative care evaluate patient and family's goals of care. Angie is his long-term neighbor and caregiver for 15 years but is not his POA. There are no children, 2 sisters that live in the [place] area. I have not met him yet. (Vickie Sandoval) Assessment/Plan pt is seen & examined d/w Vickie oswald w above cont supportive care overall prognosis is poor will f/u (Arelis Lua MD) Vickie Sandoval Feb 07, 2017 13:51 Arelis Lua MD Feb 07, 2017 15:54
--- NOTE | 2017-02-07 14:13 | EKG ---
Date Performed: 02/06/2017 Time Performed: 09:57:38 PTAGE: 81 years EKG: Sinus rhythm WITH SHORT AR INTERVAL NONSPECIFIC T-WAVE ABNORMALITY BORDERLINE ECG PREVIOUS TRACING : 05/06/2016 09.29 DOCTOR: Gab Ovalle Interpretating Date/Time 02/07/2017 14:02:25
[2017-02-07 15:52] VITALS: BP 145/74; PULSE 83; RESP 18; TEMP 97.3; O2SAT 94
[2017-02-07] MEDS: METOCLOPRAMIDE HCL 10 MG TAB PO SCH ×2 (16:06→21:00)
[2017-02-07] MEDS: ENOXAPARIN SODIUM 40 MG/0.4 ML SYRINGE SQ SCH (16:06)
--- NOTE | 2017-02-07 16:30 | PD.CONS ---
Consult Service Palliative Care Consult Requested By Dr. Lua . Primary Care Physician Walker Love DO . Reason for Consultation a. To assist with evaluation and management of symptoms including: pain; confusion b. To assist medical decision maker(s) with: better understanding of current medical conditions; weighing benefits/burdens of medical treatment options; making medical treatment decisions. . HPI History of Present Illness Mr. Maharaj is an 81 y/o male with a known history of psychiatric illness (records have indicated both bipolar disorder and schizoaffective disorder at different times); dementia; frequent falls; and decreasing ability to care for himself; who was brought to the emergency department on 02/06/17 via EMS for evaluation after a fall at home. The patient continues to live by himself and has only been able to manage thanks to a neighbor/friendAlan apparently stops in frequently, brings in his medications, and assists him in other ways. When Angie went by to see him the morning of admission she found him on the floor and called 911. The patient claimed he fell approximately hour before her getting there but he is a very poor historian. Angie reported that the patient had been falling more frequently and felt the patient at this time would require some sort of fpc placement as the care he needs has gone beyond her capabilities. At the time of my visit the patient's sister -- Rosy Valdez -- is present along with Rosy's son -- Светлана Valdez. The Courtney's note that the patient has been declining for some time. They report he often refuses to take his medications and does not eat very well. He drinks a lot of coffee all day. They say he is becoming more and more forgetful. He speaks very little and can refuse to speak altogether if he does not feel like it. Rosy reports that Mr. Maharaj has suffered from mental health problems since the late . When he does not take his medication he becomes paranoid, hear's voices, and and will seclude himself. She notes that he has had multiple hospitalizations. Family reports a long history of polysubstance abuse, but do not think he has access to drugs or alcohol at this time. Family has great trust in the patient's friend Angie who they describe as a "christianity-person" who been a good friend fro over 20 years. Family has been concerned about his living alone for some time, but the patient has resisted being moved to any type of facility. The patient has been private about his health issues. Family tells me the patient never complains of pain. When I tried to go over a review of systems, the only things they were certain about were the patient's poor food intake, his memory loss, and years of bad refractory hiccups. . Function/Cognitive Trajectory The patient normally walks with a cane but has been having frequent falls. There is a history of dementia. A review of weights from previous encounters with [facility] indicate there may have been as much as a 7 kg weight loss since April 2016. Patient eats poorly. . . Review of Systems ROS Limitations: Clinical Condition (patient is minimally verbal and unable to provide his own review of systems. No family members present at this time. Review of systems taken as well as possible from medical records.) Constitutional: COMPLAINS OF: Weight loss, Generalized weakness, DENIES: Weight gain Ears, nose, mouth, throat: DENIES: Tinnitus, Hearing loss, Throat pain, Hoarseness Respiratory: COMPLAINS OF: Shortness of breath, DENIES: Apneas, Cough Cardiovascular: COMPLAINS OF: Dyspnea on Exertion, DENIES: Chest pain, Palpitations Gastrointestinal: COMPLAINS OF: Dyspepsia or heartburn, DENIES: Constipation, Diarrhea, Nausea, Vomiting Hematologic/Lymphatics: DENIES: Lymphadenopathy Neurologic: COMPLAINS OF: Abnormal gait (uses a cane at home), Poor Balance ( uses a cane at home), DENIES: Headache, Seizures Psychiatric: COMPLAINS OF: Confusion (history of dementia) Other ROS: Frequent refractory hiccups. Past Family Social History Coded Allergies: Haldol (Verified Allergy, Intermediate, Hallucinations, 02/06/17) Past Medical History * Anemia of uncertain etiology * Coronary artery disease * Shcizoaffective disorder * ?Bipolar disorder * Dementia * Frequent falls * GERD * Recurrent hiccups * Lung nodules seen on CT of chest of 09/17/14 * Gastritis (per endoscopy of 09/20/14) * Schatzki's ring (per endoscopy of 09/20/14). * Hiatal hernia (per endoscopy of 09/20/14). Past Surgical History * Family indicates he has had no prior surgeries but medical records suggest he may of had some type of real vascularization procedure to the leg * Upper and lower endoscopy 09/17/14 . Reported Medications Prehospital medications included the following: * Benztropine 0.5 mg tablet; one by mouth at bedtime * Bupropion extended release 150 mg tablet; one by mouth daily * Risperidone 1 mg tablet; one by mouth at bedtime * Carvedilol and all 3.125 mg tablet; one by mouth every 12 hours * Cyproheptadine 4 mg tablets; one by mouth twice daily * Ferrous sulfate 325 mg tablet; one by mouth daily * tramadol 50 mg tablets; one by mouth 2-3 times per day * Donepezil 10 mg tablets; one by mouth daily * Omeprazole 20 mg tablet; one by mouth daily * Potassium chloride extended release 10 mEq tablets; one by mouth daily . Current Medications Medications (Trade) Dose Ordered Sig/Avila Route Start Time Stop Time Status Last Admin (NS Flush) 2 ml UNSCH PRN IVF 02/06/17 10:00 (Cogentin) 0.5 mg HS PO 02/06/17 21:00 02/06/17 20:44 (Wellbutrin Sr) 150 mg DAILY PO 02/07/17 09:00 02/07/17 09:05 (Coreg) 3.125 mg BID PO 02/06/17 21:00 02/07/17 09:05 (risperDAL) 1 mg HS PO 02/06/17 21:00 02/06/17 20:44 (Aricept) 10 mg DAILY PO 02/07/17 09:00 02/07/17 09:05 Miscellaneous 1 ea 1 ea UNSCH PRN OTHER 02/06/17 15:30 (Sodium Bicarbonate 8.4% Inj/D5W 1000 ml Inj) 1,050 ml @ 100 mls/hr [id number] IV 02/06/17 17:00 02/07/17 14:00 (Protonix) 40 mg DAILY PO 02/07/17 09:00 02/07/17 09:05 (Lovenox Inj) 40 mg Q24H SQ 02/06/17 16:00 02/07/17 16:06 (Reglan) 10 mg ACHS PO 02/07/17 16:00 02/07/17 16:06 . Family History * The patient's father of heart disease.\\ * The patient's mother of cancer involving lymph nodes. * One of the patient's sister has diabetes and heart disease . Substance Use Tobacco: Patient was a heavy smoker for most of his adult life. Family believes he smokes only occasional cigarettes now. Alcohol: Long history of heavy alcohol abuse. No recent use. Prescription med abuse: No known prescription drug abuse. Illicits: Medical record indicates history of polysubstance abuse including crack cocaine. No recent use. . Psychosocial History Mr. Maharaj is originally from [place], [place]. He has lived in the [facility], however, for the last 40 years. He has a high school education. There is no experience. 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 He has been on Social Security disability for many years. The patient never . He has no children. He had a brother who is . He has two surviving sisters. His sister, Rosy Valdez, lives in [place]. She tries to speak with him every few weeks but doesn't get to visit him very often. A second sister also lives in [place]. She is currently in a fpc there and has not been able to be involved in Mr. Maharaj's life.. He has a close friend/neighbor -- Angie-- who has been a big source of support for him. The patient has been living locally in the low income subsidized housing for disabled people . Spiritual/Cultural Factors Family reports that judaism and spirituality have not been an important part of his life . Living Will: Never completed Health Care Surrogate: Never completed Durable Power of Area Director: Never completed Date completed: No advanced directives have been completed . Health Care Surrogate(s): No written designation of health care surrogate . Documented care wishes: No written documentation of health care goals/preferences . Today's verbally stated goals: Patient is currently unable to verbally express his health care goals/ preferences. It is unlikely he will be able to do so in the future. . Family/friends goals: The patient's sister feel strongly that the patient would not want resuscitative efforts should his heart stop or his breathing stop. Given his ongoing decline which has accelerated over recent months, she believes he would want to be allowed a natural . She believes he would want to continue with aggressive care short of resuscitation however. . Ethical and Legal Issues Patient is currently incapacitated to make his own health care decisions. It is unlikely he will regain capacity to do so. . Physical Exam Vital Signs Date Time Temp Pulse Resp B/P Pulse Ox O2 Delivery O2 Flow Rate FiO2 02/07/17 15:52 97.3 83 18 145/74 94 02/07/17 12:18 97.5 77 18 144/67 96 02/07/17 07:43 97.1 88 18 136/79 99 02/07/17 06:32 96.8 85 16 158/76 97 02/07/17 00:00 96.8 87 24 142/66 98 02/06/17 22:15 91 150/72 02/06/17 20:00 97.4 99 24 174/82 98 02/06/17 17:00 89 20 161/68 98 Room Air . 02/06/17 02/07/17 18:59 06:59 Output Total 800 ml 1100 ml Balance -800 ml -1100 ml Output Urine Total 800 ml 1100 ml # Voids 2 # Bowel Movements 0 . Exam CONSTITUTIONAL/GENERAL: This is a thin, frail-appearing male in no acute distress. He is able to follow basic commands but he does not answer me with any intelligible words. He does have some faint vocalizations. TUBES/LINES/DRAINS: Peripheral IV; Edgar catheter; SCDs SKIN: No jaundice, rashes. Skin is somewhat dry and cracking on the hands. There is a Steri-Strip on a small laceration in the left confucianist area. No other wounds seen anteriorly. Skin temperature appropriate. Not diaphoretic. HEAD: Atraumatic. Normocephalic. EYES: Pupils equal and round and reactive. Extraocular motions intact. No scleral icterus. No injection or drainage. Fundi not examined. ENT: Hearing grossly normal. Nose without bleeding or purulent drainage. Throat without visible erythema, exudates, masses, or lesions. NECK: Trachea midline. Supple, nontender. No palpable thyroid enlargement or nodularity. CARDIOVASCULAR: Regular rate and rhythm without murmurs, gallops, or rubs. No JVD. Peripheral pulses symmetric. RESPIRATORY/CHEST: Symmetric, unlabored respirations. Clear to auscultation. Breath sounds equal bilaterally but air movement diminished at both bases. No wheezes, rales, or rhonchi. GASTROINTESTINAL: Abdomen soft, non-tender, nondistended. No hepato-splenomegaly , or palpable masses. No guarding. Bowel sounds present. GENITOURINARY: Without palpable bladder distension. Edgar catheter in place. MUSCULOSKELETAL: Extremities without clubbing, cyanosis, or edema. No joint tenderness or effusion noted. No calf tenderness. No mottling or clubbing. LYMPHATICS: No palpable cervical or supraclavicular adenopathy. NEUROLOGICAL: Awake and alert. Follows basic commands. Will not speak to me. Has a few unintelligible vocalizations. Clearly understands me however as he is able to follow basic commands. Moves all extremities. PSYCHIATRIC: No obvious anxiety/depression. Does not appear to be responding to any imaginary stimuli. . Diagnostic Tests Laboratory Laboratory Tests Test 02/06/17 02/06/17 02/06/17 02/07/17 10:05 11:20 18:00 10:14 White Blood Count 10.9 TH/MM3 9.3 TH/MM3 (4.0-11.0) (4.0-11.0) Red Blood Count 4.37 MIL/MM3 3.46 MIL/MM3 (4.50-5.90) (4.50-5.90) Hemoglobin 12.8 GM/DL 10.1 GM/DL (13.0-17.0) (13.0-17.0) Hematocrit 40.0 % 31.3 % (39.0-51.0) (39.0-51.0) Mean Corpuscular Volume 91.6 FL 90.3 FL (80.0-100.0) (80.0-100.0) Mean Corpuscular Hemoglobin 29.4 PG 29.1 PG (27.0-34.0) (27.0-34.0) Mean Corpuscular Hemoglobin 32.1 % 32.2 % Concent (32.0-36.0) (32.0-36.0) Red Cell Distribution Width 14.7 % 14.2 % (11.6-17.2) (11.6-17.2) Platelet Count 211 TH/MM3 184 TH/MM3 (150-450) (150-450) Mean Platelet Volume 8.7 FL 8.3 FL (7.0-11.0) (7.0-11.0) Neutrophils (%) (Auto) 79.7 % (16.0-70.0) Lymphocytes (%) (Auto) 13.3 % (9.0-44.0) Monocytes (%) (Auto) 6.8 % (0.0-8.0) Eosinophils (%) (Auto) 0.0 % (0.0-4.0) Basophils (%) (Auto) 0.2 % (0.0-2.0) Neutrophils # (Auto) 8.7 TH/MM3 (1.8-7.7) Lymphocytes # (Auto) 1.4 TH/MM3 (1.0-4.8) Monocytes # (Auto) 0.7 TH/MM3 (0-0.9) Eosinophils # (Auto) 0.0 TH/MM3 (0-0.4) Basophils # (Auto) 0.0 TH/MM3 (0-0.2) CBC Comment DIFF FINAL Differential Comment Prothrombin Time 11.2 SEC (9.8-11.6) Prothromb Time International 1.0 RATIO Ratio Activated Partial 26.5 SEC Thromboplast Time (24.3-30.1) Sodium Level 147 MEQ/L 141 MEQ/L (136-145) (136-145) Potassium Level 3.7 MEQ/L 3.3 MEQ/L (3.5-5.1) (3.5-5.1) Chloride Level 114 MEQ/L 104 MEQ/L (98-107) (98-107) Carbon Dioxide Level 20.8 MEQ/L 27.0 MEQ/L (21.0-32.0) (21.0-32.0) Anion Gap 12 MEQ/L (5-15) 10 MEQ/L (5-15) Blood Urea Nitrogen 14 MG/DL (7-18) 5 MG/DL (7-18) Creatinine 1.01 MG/DL 0.89 MG/DL (0.60-1.30) (0.60-1.30) Estimat Glomerular Filtration 86 ML/MIN (>89) 99 ML/MIN (>89) Rate Random Glucose 70 MG/DL 127 MG/DL (74-106) (74-106) Calcium Level 8.3 MG/DL 8.5 MG/DL (8.5-10.1) (8.5-10.1) Total Bilirubin 0.4 MG/DL (0.2-1.0) Aspartate Amino Transf 113 U/L (15-37) (AST/SGOT) Alanine Aminotransferase 40 U/L (12-78) (ALT/SGPT) Alkaline Phosphatase 145 U/L (45-117) Total Creatine Kinase 3549 U/L 3957 U/L (39-308) (39-308) Creatine Kinase MB 14.7 NG/ML 7.6 NG/ML (0.5-3.6) (0.5-3.6) Creatine Kinase MB % 0.4 % (0.0-4.0) 0.2 % (0.0-4.0) Troponin I LESS THAN 0.02 NG/ML (0.02-0.05) Total Protein 6.8 GM/DL (6.4-8.2) Albumin 2.8 GM/DL (3.4-5.0) Urine Color YELLOW (YELLW/STRAW) Urine Turbidity CLEAR (CLEAR) Urine pH 5.5 (5.0-8.5) Urine Specific Boyce 1.021 (1.002-1.035) Urine Protein 30 mg/dL (NEG-TRACE) Urine Glucose (UA) NEG mg/dL (NEG) Urine Ketones 80 mg/dL (NEG) Urine Occult Blood SMALL (NEG) Urine Nitrite NEG (NEG) Urine Bilirubin NEG (NEG) Urine Urobilinogen 2.0 MG/DL (LESS THAN 2.0) Urine Leukocyte Esterase NEG (NEG) Urine RBC 2 /hpf (0-3) Urine WBC 2 /hpf (0-5) Urine Hyaline Casts 7 /lpf (RARE) Urine Mucus FEW /lpf (OCC) Microscopic Urinalysis Comment CULT NOT INDICATED . Result Diagram: 02/07/17 1014 02/07/17 1014 Imaging Last Impressions Head CT 02/06/17 0950 Signed Impressions: Service Date/Time: Monday, February 06, 2017 11:27 - CONCLUSION: 1. No acute intracranial abnormality or significant change is seen. 2. Atrophy. There is suspected small vessel demyelination in the cerebral white matter. Travis Colon MD Chest X-Ray 02/06/17 0950 Signed Impressions: Service Date/Time: Monday, February 06, 2017 10:25 - CONCLUSION: No acute disease. Walker De Santiago MD FACR Cervical Spine CT 02/06/17 0950 Signed Impressions: Service Date/Time: Monday, February 06, 2017 11:29 - CONCLUSION: No acute bony abnormality is seen. There is mild degenerative change as described above. Travis Colon MD . Patient/Family Conference Present at Family Conference: Patient's sister -- Rosy Valdez. Ms Ames's son -- Светлана Valdez. . Family Conference Time (mins): 45 Family Conference Location: Bedside Issues Discussed: * Palliative care role, purpose, approach * Additional medical, psychosocial, and spiritual history * Patients general health, functional status, and cognitive changes in the months leading up to the current hospitalization * Family understanding of the current medical problems * Family understanding of prognosis * Patients goals of care as best understood from conversations and/or values * Current medical treatment options and benefits/burdens of those options * Questions answered to the best of my ability * Palliative care contact information provided . Assessment and Plan Disease Oriented Problem List: (1) Fall Comment: Has amparo having frequent falls. . (2) Rhabdomyolysis (3) Schizoaffective disorder (4) Anemia (5) Hypoalbuminemia (6) Dementia (7) Pulmonary nodules Comment: Seen on CT of chest in 2013. . (8) Coronary artery disease (9) Weakness (10) Poor social situation (11) Hiccups Comment: Patient has frequent episodes of refractory hiccups. . Symptom Scale: (1) Pain 0-10 Scale: Unable to quantify Comment: Family tells me the patient never complains of pain. He does have a prescription for tramadol. It is not clear what type of pain is being treated with the tramadol. In addition to this chronic pain, patient was apparently down on the floor long enough to develop some rhabdomyolysis. He may have some pain from this fall and prolonged position. He is unable to localize, quantify , or qualify pain at this time. . . Pertinent Non-Medical Issues Psychosocial: Patient has been living on his own in subsidized housing. He has not really been able to care for himself for some time but has been supported by a friend/neighbor. 2 sisters surviving live in [place] but are not able to care for him Spiritual: Buddhism and spirituality have not been an important part of his life. Legal: No advance directives have been completed. His sisters are his only surviving family and would his health care proxies under the [place] statutes. However, one of his sisters is quite ill and currently in a fpc and is unable to serve in this capacity. This leaves his Solis Valdezto serve as proxy.. Ethical issues impacting care: Patient is currently incapacitated to make his own health care decisions. It is unlikely he will regain capacity to do so. . Important Contacts * Rosy Valdez (sister and health care proxy) [phone] * Светлана Valdez (Rosy's son) * Angie Sweet (friend) [phone] . Prognosis Mr. Maharaj has had a fairly significant trajectory of decline according to family members. The specific cause of this decline is uncertain. He has a long history of tobacco abuse, polysubstance abuse, chronic anemia, coronary artery disease, and mental health issues all of which may be contributing. He is getting progressively weaker. Family reports he is losing weight and we see this documented in our own [facility] records. There've been frequent falls. There has been significant cognitive decline with increasing forgetfulness. The patient has also been in a poor social situation, living alone. It remains to be seen if the trajectory of decline would flatten out if he were in an environment where he could be better cared for. If the patient continues to decline at the current rate in spite of being in a more favorable environment he would probably be eligible for hospice care. . Code Status: No Code Plan == Code Status: NO CODE. The patient's sister who is his healthcare proxy feels strongly that the patient would not want resuscitative efforts should he have a cardiac or respiratory arrest. A "no code" order has been entered. == Decision-making: The patient is incapacitated to make his own health care decisions. It is unlikely that he will regain capacity to do so. The patient has never , has no children, has no surviving parents, and has only 2 surviving siblings. These 2 sisters living in [place]. One of them is quite ill and currently in a fpc and is unable to participate actively in decision making. This leaves the patient's Solis Valdezas the patient' s proxy decision-maker. Ms. Valdez has agreed to function in this capacity. Ms. Valdez can be reached at her home phone [phone], or via her son's cell phone number at [phone]. == Goals of medical treatment: At this time, family desires aggressive care short of resuscitative measures. I think at this point people want to see if the patient is able to thrive if he is in a safer and more caring environment. The family and the patient's friend seemed to agree that the patient is unable to continue managing at home and needs some sort of placement. == Disposition: If at all possible, family would like patient to end up in a nursing facility in the [facility] to be close to family == Pain: Patient apparently had a prescription for tramadol but it is unclear what type of pain he was having at home. He has not appeared to be painful here. He will need to be watched carefully in this regard. Should he become painful, patient may need higher than expected doses of opiates given her reported history of polysubstance abuse. At this point in time we just observe for discomfort. == Confusion: It is unclear at this time how much of patient's confusion and inability/unwillingness to speak is baseline for him or has a partial reversible component due to his malnutrition, recent fall, metabolic issues, etc. we will know as we addressed these potentially reversible issues. == Pulmonary nodules: Pulmonary nodules were noted on a chest CT scan in 2013. It does not appear that a chest CT has been repeated. If these had been malignant, most lung cancers would have caused his demise by now. A repeat chest CT could be considered for prognostic purposes. For example, if there is significant growth in the pulmonary nodules, a hospice referral might make sense at this time. == Anemia: This is probably multifactorial. Anemia has been present for many years. He has had upper and lower endoscopy (this revealed normal colon; gastritis; Schatzki's ring; and hiatal hernia) and a hematology consult. There is probably a nutritional component. Patient has been treated with supplemental iron. No further recommendations at this time. == Palliative care we'll continue to follow to assist with symptom management and to help clarify goals of care as the clinical course evolves. . Time Spent Total Floor Time (mins): 90 (Total floor time included chart review; patient exam; conversation with Dr. Lua; the above-referenced family meeting; and documentation.) Face to Face Time (mins): 60 >50% Counseling/Coord of Care: Yes Thank you for the opportunity to participate in the care of Mr. Maharaj. . Attestation To help prompt me to consider important information that might be impacting today's encounter and assessment, information from prior notes written by myself or my colleagues may have been "brought forward" into today's note. My signature on this note, however, is an attestation that I personally performed the exam, history, and/or decision-making noted today, and, unless otherwise indicated, the interactions with patient, family, and staff as well as the review of records all occurred today. I also attest that the listed assessment and stated plan reflect my best clinical judgment today based on the combination of historical information, prior notes, and today's exam/ interactions. When time spent is documented, it refers only to time spent today by the signer, or if indicated, combined time spent today by collaborating physician/nurse practitioner. . Stefan Tucker MD Feb 07, 2017 16:30
[2017-02-07 20:15] VITALS: BP 130/65; PULSE 96; RESP 18; TEMP 98.1; O2SAT 96
[2017-02-07] MEDS: BENZTROPINE MESYLATE 1 MG TAB PO SCH (22:06)
[2017-02-07] MEDS: risperiDONE 1 MG TAB PO SCH (22:07)
[2017-02-08 00:10] VITALS: BP 128/71; PULSE 89; RESP 19; TEMP 97.8; O2SAT 97
[2017-02-08] MEDS: SODIUM BICARBONATE 8.4% INJ 50 MEQ in DEXTROSE 5% IN WATE 1000ML INJ 1,000 ML IV SCH ×6 (00:34→21:00)
[2017-02-08 04:40] VITALS: BP 131/68; PULSE 88; RESP 20; TEMP 98.1; O2SAT 96
[2017-02-08] MEDS: METOCLOPRAMIDE HCL 10 MG TAB PO SCH ×4 (06:20→21:00)
[2017-02-08 07:00] VITALS: BP 128/59; PULSE 73; RESP 18; TEMP 97.3; O2SAT 99
[2017-02-08] MEDS: CARVEDILOL 3.125 MG TAB PO SCH ×2 (11:45→21:00)
[2017-02-08] MEDS: DONEPEZIL HCL 5 MG TAB PO SCH (11:45)
[2017-02-08] MEDS: buPROPion HCL 150 MG SUSTAINED RELEASE TAB PO SCH (11:45)
[2017-02-08] MEDS: PANTOPRAZOLE SOD 40 MG DELAYED RELEASE TAB PO SCH (11:46)
[2017-02-08 12:07] VITALS: BP 135/63; PULSE 73; RESP 18; TEMP 97.3; O2SAT 100
--- NOTE | 2017-02-08 15:31 | HHI.PR ---
Subjective Subjective Remarks Eyes open Nonverbal Edentulous now, teeth? diet changed to pureed. No cough with eating or drinking per staff and friend in room No shortness of breath (Vickie Sandoval) Review of Systems Constitutional Constitutional: Weakness (generalized) (Vickie Sandoval) Genitourinary Remarks Edgar catheter, monitor I&O (Vickie Sandoval) Musculoskeletal MS: Weakness, Stiffness (Vickie Sandoval) Neurologic Neurologic: Lethargic (at times, nonverbal) (Vickie Sandoval) Psychiatric Psychiatric Remarks Flat affect nonverbal (Vickie Sandoval) Vitals/Results Intake & Output 02/07/17 02/07/17 02/08/17 15:00 23:00 07:00 Intake Total 967 ml 450 ml 0 ml Output Total 300 ml 900 ml Balance 967 ml 150 ml -900 ml Intake Oral 240 ml 450 ml 0 ml IV Total 727 ml Output Urine Total 300 ml 900 ml # Bowel Movements 0 0 Vital Signs Vital Signs Date Time Temp Pulse Resp B/P Pulse Ox O2 Delivery O2 Flow Rate FiO2 02/08/17 12:07 97.3 73 18 135/63 100 02/08/17 07:00 97.3 73 18 128/59 99 02/08/17 04:40 98.1 88 20 131/68 96 02/08/17 00:10 97.8 89 19 128/71 97 02/07/17 20:15 98.1 96 18 130/65 96 02/07/17 15:52 97.3 83 18 145/74 94 (Vickie Sandoval) CBC/BMP: 02/07/17 1014 02/07/17 1014 Physical Exam General General Appearance: Pale (thin, chronically ill) (Vickie Sandoval) Eyes Eye Exam: Pupils Equal (Vickie Sandoval) Ears & Nose Ears & Nose Remarks Pale mucous membranes (Vickie Sandoval) Throat Throat Remarks Tongue dry (Vickie Sandoval) Neck Neck Exam: Neck Supple (Vickie Sandoval) Pulmonary Resp Exam: Diminished Breath Sounds (low volumes), Poor Inspiratory Effort ( Vickie Sandoval. CHANGE OF ADDRESS CLERK) Cardiology CV Exam: Regular (Vickie Sandoval. CHANGE OF ADDRESS CLERK) Gastrointestinal/Abdomen GI Exam: Soft, Non-Tender (Vickie Sandoval. CHANGE OF ADDRESS CLERK) Genitourinary Exam: Clear Urine (orange clear) (Vickie Sandoval. CHANGE OF ADDRESS CLERK) Musculoskeletal MS Exam: Atrophy (muscular) (Vickie Sandoval. CHANGE OF ADDRESS CLERK) Integumentary Skin Exam: Warm, Dry, Intact, Normal Turgor (thin turgor) (Vickie Sandoval. CHANGE OF ADDRESS CLERK) Extremeties Extremities Exam: No Edema (Vickie Sandoval. CHANGE OF ADDRESS CLERK) Neurologic Neuro Exam: Awake Neuro Remarks Nonverbal (Vickie SandovalP) Assessment/Plan Assessment/Plan 1. Schizoaffective disorder. 2. Generalized weakness and fall with laceration under left eye. 3. History of cerebrovascular accident. 4. Dementia. 5. Dehydration. 6. Anemia. 7. Hypernatremia. 8. Moderate protein calorie malnutrition. 9. Tobacco abuse. 10. hx hiccups Rhadbomyolosis Hypokalemia admit to inpatient status due to the multiple medical comorbidities. It is my opinion that the patient will require multiple days for his stabilization which will include a consult for PT and OT for their expert opinion. Swallow without difficulty as long as food is pure read or chopped. Patient is edentulous for now, No cough noted with liquids or food Pureed diet Labs will be monitored and treated for his abnormal, hypokalemia noted. Replacement potassium given by mouth, BMP in the morning ratings. Hemoglobin stable, WBC count normal, rhabdomyolysis gradual improvement. Continue gentle hydration, no leukocytosis noted telemetry, regular rhythm DVT prophylaxis with Lovenox. PUD prophylaxis with Protonix. Reglan before meals which assist with patient's hiccups according to caregiver Discharge planning initiated with case management following. 3008 on chart. When patient is stable, he will need to go to SNF placement, with possible rehabilitation. Patient has multiple falls, and will need Physical therapy eval and treat today. Patient out of bed walking with 2 person assist, generalized weakness but is able to weight bear. Discussed with Dr. Lua, patient seen on his behalf \ Discussed Condition with: Patient (Vickie Sandoval) Assessment/Plan pt is seen & examined dw. pt & his career services representative at bedside d/w vickie clinically improving/ more responsive eating better ambulated w PT ss for dc planning/possible d/c to snf in am, (Arelis Lua MD) Vickie Sandoval Feb 08, 2017 15:31 Arelis Lua MD Feb 08, 2017 18:11
[2017-02-08 15:35] VITALS: BP 111/57; PULSE 80; RESP 18; TEMP 98.2; O2SAT 99
[2017-02-08] MEDS ORDERED: POTASSIUM CHLORIDE 25 MEQ EFFERVESCENT TAB PO ONE (15:45)
[2017-02-08] MEDS: ENOXAPARIN SODIUM 40 MG/0.4 ML SYRINGE SQ SCH (17:28)
[2017-02-08 20:30] VITALS: BP 112/59; PULSE 92; RESP 19; TEMP 99.3; O2SAT 97
[2017-02-08] MEDS: BENZTROPINE MESYLATE 1 MG TAB PO SCH (21:00)
[2017-02-08] MEDS: risperiDONE 1 MG TAB PO SCH (21:00)
[2017-02-09] VITALS (7 sets, daily range): BP systolic 115–149; BP diastolic 60–67; PULSE 70–106; RESP 18–22; TEMP 96.7–99; O2SAT 94–98
[2017-02-09] MEDS: METOCLOPRAMIDE HCL 10 MG TAB PO SCH ×4 (06:17→22:26)
[2017-02-09] MEDS: SODIUM BICARBONATE 8.4% INJ 50 MEQ in DEXTROSE 5% IN WATE 1000ML INJ 1,000 ML IV SCH ×2 (08:00)
[2017-02-09] MEDS: DONEPEZIL HCL 5 MG TAB PO SCH (08:46)
[2017-02-09] MEDS: PANTOPRAZOLE SOD 40 MG DELAYED RELEASE TAB PO SCH (08:46)
[2017-02-09] MEDS: CARVEDILOL 3.125 MG TAB PO SCH ×2 (08:46→22:26)
[2017-02-09] MEDS: buPROPion HCL 150 MG SUSTAINED RELEASE TAB PO SCH (08:46)
[2017-02-09 09:21] LABS: HEMATOCRIT 30.6 % (39.0-51.0); MEAN CELL VOLUME 89.7 FL (80.0-100.0); MEAN CORPUSCULAR HEMOGLOBIN 28.9 PG (27.0-34.0); MEAN CORPUSCULAR HGB CONC 32.2 % (32.0-36.0); PLATELET COUNT 189 TH/MM3 (150-450); RED BLOOD COUNT 3.41 MIL/MM3 (4.50-5.90); REVIEW FLAG FINAL; WHITE BLOOD COUNT 7.3 TH/MM3 (4.0-11.0)
[2017-02-09 09:48] LABS: ALKALINE PHOSPHATASE 126 U/L (45-117); ALT (GPT) 45 U/L (12-78); ANION GAP 6 MEQ/L (5-15); AST (GOT) 71 U/L (15-37); BICARBONATE 30.3 MEQ/L (21.0-32.0); BLOOD UREA NITROGEN 8 MG/DL (7-18); CHLORIDE 105 MEQ/L (98-107); CREATINE KINASE 1263 U/L (39-308); GLOMERULAR FILTRATION RATE 89 ML/MIN (>89); POTASSIUM 3.6 MEQ/L (3.5-5.1); SODIUM (NA) 141 MEQ/L (136-145); TOTAL BILIRUBIN ADULT 0.3 MG/DL (0.2-1.0)
[2017-02-09 10:28] LABS: CKMB 1.8 NG/ML (0.5-3.6)
--- NOTE | 2017-02-09 13:30 | HHI.PR ---
Subjective Subjective Remarks awake, oriented x 2 has no complaints eating okay flat affect no cp no sob ROS limited Review of Systems Constitutional Constitutional Remarks 12 point ROS limited Vitals/Results Intake & Output 02/08/17 02/08/17 02/09/17 15:00 23:00 07:00 Intake Total 240 ml 800 ml 400 ml Output Total 800 ml 200 ml Balance -560 ml 600 ml 400 ml Intake Oral 240 ml 800 ml 400 ml Output Urine Total 800 ml 200 ml # Voids 2 # Bowel Movements 0 1 Vital Signs Vital Signs Date Time Temp Pulse Resp B/P Pulse Ox O2 Delivery O2 Flow Rate FiO2 02/09/17 12:08 97.6 75 20 131/66 98 02/09/17 07:54 96.7 70 20 132/61 98 02/09/17 04:30 97.7 88 19 115/60 98 02/09/17 00:00 99.0 89 18 115/60 98 02/08/17 20:30 99.3 92 19 112/59 97 02/08/17 15:35 98.2 80 18 111/57 99 CBC/BMP: 02/09/17 0810 02/09/17 0810 Lab Results Laboratory Tests Test 02/09/17 08:10 White Blood Count 7.3 TH/MM3 Red Blood Count 3.41 MIL/MM3 Hemoglobin 9.9 GM/DL Hematocrit 30.6 % Mean Corpuscular Volume 89.7 FL Mean Corpuscular Hemoglobin 28.9 PG Mean Corpuscular Hemoglobin 32.2 % Concent Red Cell Distribution Width 14.0 % Platelet Count 189 TH/MM3 Mean Platelet Volume 8.8 FL Sodium Level 141 MEQ/L Potassium Level 3.6 MEQ/L Chloride Level 105 MEQ/L Carbon Dioxide Level 30.3 MEQ/L Anion Gap 6 MEQ/L Blood Urea Nitrogen 8 MG/DL Creatinine 0.98 MG/DL Estimat Glomerular Filtration 89 ML/MIN Rate Random Glucose 94 MG/DL Calcium Level 8.1 MG/DL Total Bilirubin 0.3 MG/DL Aspartate Amino Transf 71 U/L (AST/SGOT) Alanine Aminotransferase 45 U/L (ALT/SGPT) Alkaline Phosphatase 126 U/L Total Creatine Kinase 1263 U/L Creatine Kinase MB 1.8 NG/ML Creatine Kinase MB % 0.1 % Total Protein 6.0 GM/DL Albumin 2.2 GM/DL Physical Exam General General Appearance: Well Developed, Pale, Malnourished Eyes Eye Exam: Pupils Equal, Pupils Reactive Ears & Nose Ears & Nose Exam: Nasal Mucosa [place] Neck Neck Exam: Neck Supple Pulmonary Resp Exam: Diminished Breath Sounds, Poor Inspiratory Effort Cardiology CV Exam: Regular Gastrointestinal/Abdomen GI Exam: Soft, Non-Tender Musculoskeletal MS Exam: Atrophy (muscular) Integumentary Skin Exam: Warm, Dry, Intact, Normal Turgor (thin turgor) Skin Remarks skin dry and flaky Extremeties Extremities Exam: No Edema, Pedal Pulses Palpable Neurologic Neuro Exam: Alert, Awake, Speech Clear, Moving All Extremities, No Focal Deficits VTE Prophylaxis VTE Prophylaxis Meds: Lovenox PUD Prophylasis PUD Prophylaxis: Protonix Assessment/Plan Problem List: (1) Schizo affective schizophrenia (2) History of CVA (cerebrovascular accident) (3) Head injury (4) Laceration (5) Anemia (6) Dementia (7) Rhabdomyolysis (8) Schizoaffective disorder (9) Weakness (10) Hiccups Assessment/Plan dc IVF continue with pureed diet PT eval OOB with assist continue with psych meds CPK trending down CM for DC planning, needs SNF placement DVT prophylaxis with Lovenox. PUD prophylaxis with Protonix. Discharge to SNF today if arrangements made F/U PCP Diet -heart healthy Activity as tolerated D/W RN D/W Dr. Lua D/W pt D/W CM This patient was seen by myself and Dr. Lua, this note is written on his behalf. Problem Qualifiers (1) Head injury: Qualified Code: S09.90XA - Head injury, initial encounter (2) Anemia: Qualified Code: D64.9 - Anemia, unspecified type (3) Dementia: Qualified Code: F03.90 - Dementia without behavioral disturbance, unspecified dementia type (4) Rhabdomyolysis: Qualified Code: M62.82 - Non-traumatic rhabdomyolysis (5) Schizoaffective disorder: Qualified Code: F25.9 - Schizoaffective disorder, unspecified type Annemarie oWod Feb 09, 2017 13:29
[2017-02-09] MEDS ORDERED: LACT12LO4 TOPICAL (13:36)
--- NOTE | 2017-02-09 13:36 | HHI.DCPOC ---
Discharge Care Plan Diagnosis: (1) Schizoaffective disorder (2) Rhabdomyolysis (3) Weakness Your Health Problems Are: Difficulty with ADL Goals to Promote Your Health * To prevent worsening of your condition and complications * To maintain your health at the optimal level Directions to Meet Your Goals Take your medications as prescribed Follow your dietary instruction Follow activity as directed Keep your appointments as scheduled Take your immunizations and boosters as scheduled If your symptoms worsen call your PCP, if no PCP go to Urgent Care Center or Emergency Room Smoking is Dangerous to Your Health. Avoid second hand smoke Call the 24-hour hour crisis hotline for domestic abuse at Annemarie Wood [facility] Feb 09, 2017 13:36
[2017-02-09] MEDS ORDERED: TRAM50TA PO (14:21)
[2017-02-09] MEDS: LACTIC ACID (AMMONIUM LACTATE) 12% LOTION 225 GM BTL TOPICAL SCH ×2 (15:07→22:27)
[2017-02-09] MEDS: ENOXAPARIN SODIUM 40 MG/0.4 ML SYRINGE SQ SCH (15:46)
--- NOTE | 2017-02-09 17:17 | HHI.DS ---
Discharge Summary Admission Date Feb 06, 2017 at 13:32 Discharge Date: Feb 09, 2017 Admitting Diagnosis Rhabdomyolysis, Dehydration. (1) Weakness (2) Dementia (3) Rhabdomyolysis (4) Schizoaffective disorder (5) History of CVA (cerebrovascular accident) CBC/BMP: 02/09/17 0810 02/09/17 0810 Significant Findings Laboratory Tests Test 02/06/17 02/07/17 02/09/17 18:00 10:14 08:10 Urine Protein 30 mg/dL (NEG-TRACE) Urine Ketones 80 mg/dL (NEG) Urine Occult Blood SMALL (NEG) Urine Mucus FEW /lpf (OCC) Red Blood Count 3.46 MIL/MM3 3.41 MIL/MM3 (4.50-5.90) (4.50-5.90) Hemoglobin 10.1 GM/DL 9.9 GM/DL (13.0-17.0) (13.0-17.0) Hematocrit 31.3 % 30.6 % (39.0-51.0) (39.0-51.0) Potassium Level 3.3 MEQ/L (3.5-5.1) Blood Urea Nitrogen 5 MG/DL (7-18) Random Glucose 127 MG/DL (74-106) Total Creatine Kinase 3957 U/L 1263 U/L (39-308) (39-308) Creatine Kinase MB 7.6 NG/ML (0.5-3.6) Calcium Level 8.1 MG/DL (8.5-10.1) Aspartate Amino Transf 71 U/L (15-37) (AST/SGOT) Alkaline Phosphatase 126 U/L (45-117) Total Protein 6.0 GM/DL (6.4-8.2) Albumin 2.2 GM/DL (3.4-5.0) Hospital Course This is a pleasant 81-year-old black male who came in for evaluation of a fall. He was accompanied by his neighbor who is his lawn caretaker. She lives in the home next door but comes over every day, multiple times feeding him, helping assisting him with any daily activities, brings him his medicines and basically is his lawn caretaker. He does have some family that lives up in the [facility] but she states no one ever comes by. When she got there this morning to check on him she found him in the floor and called EMS to come evaluate him. According to neighbor pt has been falling more and more over the past couple years. She stated that he does get confused easily but with her assistance he has been able to stay in his home. She does state that he is fairly demented. The patient was nonverbal in the ED, did not respond to simple questions. His eyes were open but he is not tracking or following with his eyes. In the ED, pt. was evaluated. Labs were completed. Diagnostic data, White count 10,9, RBC 4.37, hemoglobin 12.8, hematocrit 40, platelet count 211, neutrophil auto count 79.7. PT INR is 1. Sodium 147, potassium 3.7, chloride 114, carbon dioxide 20.8, amnion gap 12, BUN 14, creatinine 1.01, GFR 86, random glucose 70, calcium 8.3. Total bilirubin 0.4, AST 113, ALT 40, alkaline phosphatase 145. Total creatinine kinase 3549, CK-MB 14.7. Troponin less than 0.02. Total protein 6.8, albumin 2.8. IMAGING Studies showed cervical spine CT no bony abnormality seen. Mild degenerative changes noted. Chest x-ray shows no acute disease. Head CT scan no acute intracranial abnormality. Atrophy is suspected with small vessel demyelinization in the cerebral white matter. Pt. admitted with: (1) Schizo affective schizophrenia (2) History of CVA (cerebrovascular accident) (3) Head injury (4) Laceration (5) Anemia (6) Dementia (7) Rhabdomyolysis (8) Schizoaffective disorder (9) Weakness (10) Hiccups During the course of the hospitalization, the following took place: Put on IVF Imaging studies reviewed, no acute findings. CPK was followed, trending down with hydration PT/OT ordered Put on DVT prophylaxis with Lovenox and PUD prophylaxis with Protonix CM consulted for DC planning Speech evaluated, pureed diet recommended Continued on psych meds Palliative care consulted, they spoke to family. DNR status initiated. Pt. had been declining, long history of mental health problems. Family agreeable with SNF placement and continue with aggressive care short of resuscitative measures Pt. stable, eating better and more responsive. Discharged to SNF Pt Condition on Discharge: Stable Discharge Disposition: Discharge to SNF Discharge Instructions DIET: Follow Instructions for: Heart Healthy Diet Activities you can perform: Weight Bearing as Edmund Follow up Referrals: PCP Follow-up New Medications: Tramadol (Tramadol) 50 Mg Tab 50 MG PO Q6H PRN PAIN #20 Ref 0 TAB Lactic Acid (Ammonium Lactate) (Amlactin) 12 % Lot 1 APPLIC TOPICAL BID DRY SKIN #1 BOTTLE Continued Medications: Benztropine (Benztropine) 0.5 Mg Tab 0.5 MG PO HS #30 Ref 0 TAB Bupropion HCl ER 24 HR (Wellbutrin Xl 24 HR) 150 Mg Tab 150 MG PO DAILY Control Depression Ref 0 TAB Carvedilol (Carvedilol) 3.125 Mg Tab 3.125 MG PO Q12HR HTM #60 Ref 0 TAB Cyproheptadine (Cyproheptadine) 4 Mg Tab 4 MG PO BID Allergy Management Ref 0 TAB Donepezil (Donepezil) 10 Mg Tab 10 MG PO DAILY Dementia #30 Ref 0 TAB Ferrous Sulfate (Ferrous Sulfate) 325 Mg Tab 325 MG PO DAILY Nutritional Supplement #30 Ref 0 TAB Omeprazole (Omeprazole) 20 Mg Tab 20 MG PO DAILY #30 Ref 0 TAB Potassium Chloride ER (K-Tab) 10 Meq Tab 10 MEQ PO DAILY Electrolyte Replacement #30 Ref 0 TAB Risperidone (Risperdal) 1 Mg Tab 1 MG PO HS #30 Ref 0 TAB Discontinued Medications: Tramadol (Tramadol) 50 Mg Tab 50 MG PO 2-3 TIMES DAILY Pain Management Ref 0 TAB Annemarie Wood Feb 09, 2017 17:17
[2017-02-09] MEDS: BENZTROPINE MESYLATE 1 MG TAB PO SCH (22:26)
[2017-02-09] MEDS: risperiDONE 1 MG TAB PO SCH (22:26)
[2017-02-10] VITALS (7 sets, daily range): BP systolic 124–144; BP diastolic 57–63; PULSE 66–97; RESP 20; TEMP 95.5–98.6; O2SAT 96–100
[2017-02-10] MEDS: METOCLOPRAMIDE HCL 10 MG TAB PO SCH ×4 (06:05→22:36)
[2017-02-10] MEDS: buPROPion HCL 150 MG SUSTAINED RELEASE TAB PO SCH (09:23)
[2017-02-10] MEDS: DONEPEZIL HCL 5 MG TAB PO SCH (09:23)
[2017-02-10] MEDS: CARVEDILOL 3.125 MG TAB PO SCH ×2 (09:23→22:36)
[2017-02-10] MEDS: PANTOPRAZOLE SOD 40 MG DELAYED RELEASE TAB PO SCH (09:23)
[2017-02-10] MEDS: LACTIC ACID (AMMONIUM LACTATE) 12% LOTION 225 GM BTL TOPICAL SCH ×2 (09:23→22:37)
--- NOTE | 2017-02-10 10:51 | HHI.PR ---
Subjective Subjective Remarks awake, oriented x 2 has no complaints eating okay more interactive today sitting up in chair Review of Systems Constitutional Constitutional Remarks 12 point ROS limited Vitals/Results Intake & Output 02/09/17 02/09/17 02/10/17 15:00 23:00 07:00 Intake Total 780 ml 60 ml Balance 780 ml 60 ml Intake Oral 780 ml 60 ml # Voids 4 1 # Bowel Movements 2 0 Vital Signs Vital Signs Date Time Temp Pulse Resp B/P Pulse Ox O2 Delivery O2 Flow Rate FiO2 02/10/17 08:18 95.5 80 20 135/63 96 02/10/17 04:00 97.7 88 20 124/57 100 02/10/17 02:22 92 02/10/17 02:22 92 02/10/17 00:00 97.5 89 20 131/ 99 02/09/17 20:00 96.7 106 22 149/67 95 02/09/17 15:26 97.9 86 20 124/66 94 02/09/17 12:08 97.6 75 20 131/66 98 CBC/BMP: 02/09/17 0810 02/09/17 0810 Physical Exam General General Appearance: Well Developed, Pale, Malnourished Eyes Eye Exam: Pupils Equal, Pupils Reactive Ears & Nose Ears & Nose Exam: Nasal Mucosa [place] Neck Neck Exam: Neck Supple Pulmonary Resp Exam: Diminished Breath Sounds, Poor Inspiratory Effort Cardiology CV Exam: Regular Gastrointestinal/Abdomen GI Exam: Soft, Non-Tender Musculoskeletal MS Exam: Atrophy (muscular) Integumentary Skin Exam: Warm, Dry, Intact, Normal Turgor (thin turgor) Skin Remarks skin dry and flaky Extremeties Extremities Exam: No Edema, Pedal Pulses Palpable Neurologic Neuro Exam: Alert, Awake, Speech Clear, Moving All Extremities, No Focal Deficits VTE Prophylaxis VTE Prophylaxis Meds: Lovenox PUD Prophylasis PUD Prophylaxis: Protonix Assessment/Plan Problem List: (1) Schizo affective schizophrenia (2) History of CVA (cerebrovascular accident) (3) Head injury (4) Laceration (5) Anemia (6) Dementia (7) Rhabdomyolysis (8) Schizoaffective disorder (9) Weakness (10) Hiccups Assessment/Plan continue with pureed diet PT eval OOB with assist continue with psych meds CPK trending down CM for DC planning, SNF placement DVT prophylaxis with Lovenox. PUD prophylaxis with Protonix. Discharge to SNF when arrangements made, waiting for authorization F/U PCP Diet -heart healthy Activity as tolerated D/W RN D/W Dr. Lua D/W pt This patient was seen by myself and Dr. Lua, this note is written on his behalf. Problem Qualifiers (1) Head injury: Qualified Code: S09.90XA - Head injury, initial encounter (2) Anemia: Qualified Code: D64.9 - Anemia, unspecified type (3) Dementia: Qualified Code: F03.90 - Dementia without behavioral disturbance, unspecified dementia type (4) Rhabdomyolysis: Qualified Code: M62.82 - Non-traumatic rhabdomyolysis (5) Schizoaffective disorder: Qualified Code: F25.9 - Schizoaffective disorder, unspecified type Annemarie Wood Feb 10, 2017 10:51
[2017-02-10] MEDS: ENOXAPARIN SODIUM 40 MG/0.4 ML SYRINGE SQ SCH (16:27)
[2017-02-10] MEDS: risperiDONE 1 MG TAB PO SCH (22:37)
[2017-02-10] MEDS: BENZTROPINE MESYLATE 1 MG TAB PO SCH (22:37)
[2017-02-11] VITALS: BP 122/64; PULSE 100; RESP 20; TEMP 96.9; O2SAT 95
[2017-02-11 04:00] VITALS: BP 128/60; PULSE 87; RESP 18; TEMP 97.5; O2SAT 98
[2017-02-11] MEDS: METOCLOPRAMIDE HCL 10 MG TAB PO SCH ×2 (06:16→11:39)
[2017-02-11 08:00] VITALS: BP 166/82; PULSE 112; RESP 21; TEMP 97.1; O2SAT 99
--- NOTE | 2017-02-11 09:00 | HHI.PR ---
Subjective Subjective Remarks awake, oriented x 2 has no complaints eating okay no acute changes overnight Review of Systems Constitutional Constitutional Remarks 12 point ROS limited Vitals/Results Intake & Output 02/10/17 02/10/17 02/11/17 15:00 23:00 07:00 Intake Total 900 ml 60 ml Balance 900 ml 60 ml Intake Oral 900 ml 60 ml # Voids 1 2 # Bowel Movements 0 0 Vital Signs Vital Signs Date Time Temp Pulse Resp B/P Pulse Ox O2 Delivery O2 Flow Rate FiO2 02/11/17 08:00 97.1 112 21 166/82 99 02/11/17 04:00 97.5 87 18 128/60 98 02/11/17 00:00 96.9 100 20 122/64 95 02/10/17 20:20 98.5 97 20 144/63 98 02/10/17 16:52 98.6 84 20 132/60 100 02/10/17 12:28 96.6 66 20 130/60 96 CBC/BMP: 02/09/17 0810 02/09/17 0810 Physical Exam General General Appearance: Well Developed, Pale, Malnourished Eyes Eye Exam: Pupils Equal, Pupils Reactive Ears & Nose Ears & Nose Exam: Nasal Mucosa [place] Neck Neck Exam: Neck Supple Pulmonary Resp Exam: Diminished Breath Sounds, Poor Inspiratory Effort Cardiology CV Exam: Regular Gastrointestinal/Abdomen GI Exam: Soft, Non-Tender Musculoskeletal MS Exam: Atrophy (muscular) Integumentary Skin Exam: Warm, Dry, Intact, Normal Turgor (thin turgor) Skin Remarks skin dry and flaky Extremeties Extremities Exam: No Edema, Pedal Pulses Palpable Neurologic Neuro Exam: Alert, Awake, Speech Clear, Moving All Extremities, No Focal Deficits VTE Prophylaxis VTE Prophylaxis Meds: Lovenox PUD Prophylasis PUD Prophylaxis: Protonix Assessment/Plan Problem List: (1) Schizo affective schizophrenia (2) History of CVA (cerebrovascular accident) (3) Head injury (4) Laceration (5) Anemia (6) Dementia (7) Rhabdomyolysis (8) Schizoaffective disorder (9) Weakness (10) Hiccups Assessment/Plan continue with pureed diet PT eval OOB with assist continue with psych meds CM for DC planning, SNF placement DVT prophylaxis with Lovenox. PUD prophylaxis with Protonix. Discharge to SNF when arrangements made, waiting for authorization F/U PCP Diet -heart healthy Activity as tolerated D/W RN D/W Dr. Lua D/W pt D/W CM This patient was seen by myself and Dr. Lua, this note is written on his behalf. Problem Qualifiers (1) Head injury: Qualified Code: S09.90XA - Head injury, initial encounter (2) Anemia: Qualified Code: D64.9 - Anemia, unspecified type (3) Dementia: Qualified Code: F03.90 - Dementia without behavioral disturbance, unspecified dementia type (4) Rhabdomyolysis: Qualified Code: M62.82 - Non-traumatic rhabdomyolysis (5) Schizoaffective disorder: Qualified Code: F25.9 - Schizoaffective disorder, unspecified type Annemarie Wood Feb 11, 2017 09:00
[2017-02-11] MEDS: buPROPion HCL 150 MG SUSTAINED RELEASE TAB PO SCH (09:21)
[2017-02-11] MEDS: PANTOPRAZOLE SOD 40 MG DELAYED RELEASE TAB PO SCH (09:22)
[2017-02-11] MEDS: CARVEDILOL 3.125 MG TAB PO SCH (09:22)
[2017-02-11] MEDS: LACTIC ACID (AMMONIUM LACTATE) 12% LOTION 225 GM BTL TOPICAL SCH (09:22)
[2017-02-11] MEDS: DONEPEZIL HCL 5 MG TAB PO SCH (09:22)
[2017-02-11 12:00] VITALS: BP 123/58; PULSE 81; RESP 21; TEMP 96.5; O2SAT 100
[2017-02-11 16:00] VITALS: BP 129/68; PULSE 97; RESP 22; TEMP 96.9; O2SAT 97
[2017-02-12] MEDS ORDERED: INFLUENZA VIRUS VACCINE (QUADRIVALENT) 0.5 ML SYR IM ONE (09:00)
== END 2017-02-11 16:26 | DRG 558 ==
LOC: NEPC 09:36 → NEDA 13:32 → N05A 19:13
PROVIDERS: ADMIT Specialist; ATTEND Specialist
PROC: 0HQ1XZZ Repair Face Skin, External Approach (ICD-10-PCS; principal; 2017-02-06)
DX: M62.82 Rhabdomyolysis (principal); E87.0 Hyperosmolality and hypernatremia; E44.0 Moderate protein-calorie malnutrition; F03.90 Unspecified dementia, unspecified severity, without behavioral disturbance, psychotic disturbance, mood disturbance, and anxiety; S01.112A Laceration without foreign body of left eyelid and periocular area, initial encounter; E86.0 Dehydration; F25.9 Schizoaffective disorder, unspecified; Z86.73 Personal history of transient ischemic attack (TIA), and cerebral infarction without residual deficits; R29.6 Repeated falls; F17.210 Nicotine dependence, cigarettes, uncomplicated; W18.30XA Fall on same level, unspecified, initial encounter; Y93.9 Activity, unspecified; Y92.009 Unspecified place in unspecified non-institutional (private) residence as the place of occurrence of the external cause; R32 Unspecified urinary incontinence; F31.9 Bipolar disorder, unspecified; D64.9 Anemia, unspecified; I25.10 Atherosclerotic heart disease of native coronary artery without angina pectoris; K21.9 Gastro-esophageal reflux disease without esophagitis; K44.9 Diaphragmatic hernia without obstruction or gangrene; Z51.5 Encounter for palliative care; G89.29 Other chronic pain; Z66 Do not resuscitate; E87.6 Hypokalemia; R06.6 Hiccough
CPT/HCPCS: 70450; 71010; 72125; 80048; 80053; 81001; 82550; 82552; 84484; 85025; 85027; 85610; 85730; 93005; 96360; 96361; 96372; J1650; J2060; J7030; J7070